=== PATIENT | female | born 1960 | race Caucasian/White ===

== ENCOUNTER → 2016-06-22 | Outpatient (CLI) | payer OTHER ==
[~2016-06-22] VITALS: Ht 162.6 cm; Wt 68.0 kg
[~2016-06-22] MED LIST: BACLOFEN 10MG T10 MG PO; BACTRIM DS TAB1 EACH PO; CEFTIN500 MG PO; COUMADIN 4 MG TA4 M1 PO; ESTRACE0.5 MG PO; HYDROCODON-ACE1 EAC5 PO; HYDROCODON-ACE1 EAC7 PO; HYDROCODONE-AP1 EAC6 PO; HYSINGLA ER40 MG PO; LIORESAL 10 MG10 MG PO; LIPITOR10 MG PO; LYRICA 75 MG CA75 MG PO; MEDROLDOSEPACK PO; NABUMETONE 500500 M1 PO; NEURONTIN 300300 M1 PO
--- NOTE | ~2016-06-22 | HPC ---
[facility] [place] [address] PAIN MANAGEMENT CONSULTATION Name: ARLENE MCKAY Room #: REG [facility]#: [id number] Admission: 06/22/16 Attend Phys: Nigel Orr DO Discharge: Date of : 56 Report #: [id number] THIS REPORT FOR: //name// CC: Nigel Jordan MD DATE OF SERVICE: 06/22/2016 REFERRING PHYSICIAN: Josafat Jordan M.D. CHIEF COMPLAINT: Low back pain, bilateral lower extremity pain with paresthesias. HISTORY OF PRESENT ILLNESS: As you know, patient is a 56-year-old female returning in followup visit reporting low back pain, bilateral lower extremity pain with paresthesias. She states her pain is sharp, aching, numbness and tingling in sensation, exacerbated with walking, standing, bending, improves with medications, repositioning. She is placing current pain score at 9/10. She has returned today in followup visit requesting a lumbar epidural injection under fluoroscopic guidance to address suspected recurrent lumbar radicular symptoms. As you are aware, we have treated the patient's lumbar radicular pain in the past with epidural injection with good resolution of symptoms. She returns today to trial this epidural again to hopefully improve symptoms further. She does suffer from continued facet arthropathy of the lumbar spine. This does not appear to be the source of the patient's pain today given the distribution of symptoms radiating all the way down to the ankles. ALLERGIES: OXYCODONE, ACETAMINOPHEN. CURRENT MEDICATIONS: Hydrocodone, gabapentin, Estrace and atorvastatin. SOCIAL HISTORY: The patient continues to smoke 1 pack of tobacco per day. She is not at all attempting to quit. She denies IV or illicit drug use. Denies any chronic alcohol use. She is unaccompanied today. PHYSICAL EXAMINATION: VITAL SIGNS: Blood pressure 137/85, pulse 73, respiratory rate 16, unlabored. The patient is 99% on room air. Height 5 feet 4 inches tall, weight 150 pounds, BMI calculated 25.7. GENERAL: Well developed, well nourished, well hydrated 56-year-old female, appearing stated age, placing pain score today 9/10. HEENT: Normocephalic, atraumatic. Pupils equal, round, reactive to light. Extraocular muscles are intact. EXTREMITIES: Show no clubbing, no cyanosis, no edema. MUSCULOSKELETAL: There is some palpatory tenderness over the paraspinal [facility] [address] [place] [address] PAIN MANAGEMENT CONSULTATION Name: ARLENE MCKAY SHRUTHI [facility]: [facility] [id number] Admission: 06/22/16 Attend Phys: Nigel Orr DO Discharge: Date of : 56 Report #: [id number] musculature of lower lumbar spine. Seated and straight leg raising negative. Supine straight leg raising positive. Fabere's test is negative. Modified Gaenslen's positive for axial low back pain. Ankle clonus negative. Babinski is negative. Muscle bulk and tone equal and symmetrical in lower extremities. No focal neurologic deficits. Lumbar provocation testing including extension, rotation, lateral flexion all intensify axial back pain. ASSESSMENT: 1. Recurrent lumbar radiculopathy. 2. Lumbosacral spondylosis with radicular symptoms. 3. Lumbar degeneration. 4. Chronic intractable pain. PLAN: 1. The patient has returned today in followup visit with what appears to be recurrent lumbar radiculopathy. The patient has symptoms radiating from the back along the posterolateral thigh all the way to the ankles. This distribution would indicate more of a radicular component than her typical facet arthropathy pain. We have discussed with the patient the options for treatment. She chose to undergo epidural injection under fluoroscopic guidance. She was advised risks and benefits of this procedure. These risks include, but are not necessarily limited to bleeding, bruising, infection, worsening pain, no relief of pain, also risk of temporary or permanent muscle weakness, temporary or permanent nerve damage, possible paralysis and . The patient states understood and wished to proceed. 2. The patient was provided a prescription of gabapentin 300 mg dose. She is to take 3 tabs at night, given #90 tablets with two refills, 3 months' worth of medication. 3. The patient was provided a refill prescription of [place] 10/325, 1 tab p.o. q. 6 hours p.r.n for pain #120, releases of today, 4 weeks from today, 8 weeks from today, 3 months' worth of medication. 4. The patient will return to our clinic in 3 months for ongoing medical therapy earlier if she wishes to undergo interventional treatments. We reviewed the fact that opiate medications are being used to provide analgesia adequate to support activities of daily living, not attempting to achieve a specific pain score on the 0-10 Visual Analog Scale. The current opiate medications are providing sufficient analgesia to allow the patient to participate in activities of daily living. The patient is not exhibiting any aberrant behavior suggestive of drug diversion. The patient is not having any adverse reactions to medications. The patient is not suffering from daytime somnolence or mental acuity changes. The patient is managing opiate-induced constipation with appropriate mdva-qcj-abhqsle agents and dietary considerations. The patient was counseled on concern for caution with operating a motor vehicle while using opiate medications. [facility] [address] [place] [address] PAIN MANAGEMENT CONSULTATION Name: ARLENE MCKAY Room #: REG CL M.Violet.#: [id number] Admission: 06/22/16 Attend Phys: Nigel Orr DO Discharge: Date of : 56 Report #: [id number] A physical exam was performed and the patient's functional status was evaluated. All patients with back pain were advised against the bed rest greater than 4 days and were advised to return to normal activities. Pain score assessment was noted and the treatment plan was reviewed with the patient. All current medications, both prescribed and OTC were reviewed and reconciled on the electronic medical record. Tobacco screening was accomplished and smoking cessation was advised when indicated. BMI was noted and diet/exercise modification was recommended for all patients following outside normal parameters. I reviewed with the patient today their responsibilities to safeguard prescription medications, reviewed their responsibility to utilize medications only as prescribed by the physician. They are to seek and receive pain medications only from 1 physician group ( [facility]). They are to use 1 pharmacy and keep the clinic informed if they change pharmacies. Their responsibilities include making followup visits in a timely fashion and to avoid abrupt discontinuation of medication usage. Their responsibilities further include bringing their medications (bottles from the pharmacy with residual pills) to the visit for possible confirmation of pill counts and the patient understands it is their responsibility to submit to random drug screens to ensure both that the medications prescribed are present, and that no other controlled substances are present. All prescriptions provided today were generated electronically. PROCEDURE NOTE DESCRIPTION OF PROCEDURE: Lumbar epidural injection under fluoroscopic guidance. After obtaining written consent, the patient was taken back to fluoroscopy suite, placed in prone position with pillow under abdomen to decrease lumbar lordosis. Skin overlying the lumbosacral area was prepped and draped in aseptic fashion. Lumbar intervertebral spaces were identified by AP fluoroscopy. Skin and subcutaneous tissue overlying the target site of injection was anesthetized with 3 mL of 1% lidocaine. A 20-gauge 3-1/2 inch Tuohy needle was advanced under fluoroscopic guidance towards the epidural space using a paramedian approach. Epidural space was identified using loss of resistance to air technique. After negative aspiration for heme or cerebrospinal fluid, 1 mL of Omnipaque was injected. Lumbar epidurogram was confirmed using both AP and lateral fluoroscopy. After negative aspiration for heme or cerebrospinal fluid, 5 mL of a solution containing 2 mL 40 mg per mL, 80 mg total triamcinolone, 3 mL lidocaine 1% was injected slowly. Needle retracted approximately long term, needle tract flushed 3 mL 1% lidocaine. Needle then removed. Sterile bandage placed over injection site. No new motor deficits present in lower extremity following procedure. [address] [address] PAIN MANAGEMENT CONSULTATION Name: ARLENE MCKAY Room #: REG [facility] Garza#: [id number] Admission: 06/22/16 Attend Phys: Nigel Orr DO Discharge: Date of : 56 Report #: [id number] The patient tolerated procedure well, carefully escorted to the recovery in stable condition. No apparent complication. After meeting discharge criteria, the patient discharged home. <ELECTRONICALLY SIGNED> By: Nigel Orr DO 06/28/16 [id number] [id number] Nigel Orr DO /nt
[2016-06-22 11:04] VITALS: BP 137/85
== END | disposition home or self-care (01) ==
LOC: PAIN 07:17
DX: M51.36 Other intervertebral disc degeneration, lumbar region (principal); M47.27 Other spondylosis with radiculopathy, lumbosacral region; G89.29 Other chronic pain

== ENCOUNTER → 2016-09-27 | Outpatient (CLI) | payer OTHER ==
[~2016-09-27] VITALS: Ht 162.6 cm; Wt 63.1 kg
--- NOTE | ~2016-09-27 | HPC ---
[facility] [address] [place] [address] PAIN MANAGEMENT CONSULTATION Name: ARLENE MCKAY Room #: REG [facility]..#: [id number] Admission: 09/27/16 Attend Phys: Nigel Orr DO Discharge: Date of : 56 Report #: [id number] THIS REPORT FOR: //name// CC: Nigel Jordan MD DATE OF SERVICE: 09/27/2016 REFERRING PHYSICIAN: Josafat Jordan MD CHIEF COMPLAINT: Low back pain, bilateral lower extremity pain and paresthesias, increasing neck pain, right upper extremity pain and paresthesias. HISTORY OF PRESENT ILLNESS: As you know, patient is a 56-year-old female who suffers from chronic lumbar radiculopathy and chronic cervical radiculopathy. She is placing pain score today 4/10. States pain is sharp and aching in sensation. Pain is exacerbated with walking, standing, bending, using her right upper extremity, improves with medications and seated position. She indicates today that neck pain is beginning to increase, but at this time wishes no changes in medical therapy. She is going to delay the next in a series of cervical epidural injections until which time pain intensifies. She is denying injury or trauma to neck cord low back that may have led to sustaining pain. ALLERGIES: OXYCODONE, ACETAMINOPHEN. CURRENT MEDICATIONS: Hydrocodone 10/325 one tab every 6 hours p.r.n. for pain, gabapentin 900 mg p.o. at bedtime, estradiol 0.5 mg once a day. SOCIAL HISTORY: The patient continues to smoke 1 pack tobacco per day, has done so for years. Denies IV or illicit drug use. Denies any chronic alcohol use. She is unaccompanied today. IMAGING: No new imaging available. PHYSICAL EXAMINATION: VITAL SIGNS: Blood pressure 123/77, pulse 78, respiratory rate 14 and unlabored, the patient 99% on room air. Height 5 feet 4 inches tall, weight 139.2 pounds, BMI calculated 23.9. GENERAL: Well developed, well nourished, well hydrated, 56-year-old female appearing her stated age. Pain is rated around 4/10. HEENT: Normocephalic, atraumatic. Pupils equal, round, reactive to light. Extraocular muscles are intact. Sclerae nonicteric without injection. NEUROLOGIC: Speech is fluent. The patient deemed a good historian. EXTREMITIES: Show no clubbing, no cyanosis, no edema. MUSCULOSKELETAL: Palpatory tenderness is noted over the paraspinal musculature [address] [address] PAIN MANAGEMENT CONSULTATION Name: ARLENE MCKAY SHRUTHI Room #: REG [facility] Nazia.#: [id number] Admission: 09/27/16 Attend Phys: Nigel Orr DO Discharge: Date of : 56 Report #: [id number] of cervical spine. Cervical provocation testing including extension, rotation, lateral flexion to the right causes intensification of pain. Spurling's test equivocal right, negative left. There is palpatory tenderness over the lower lumbar spine, no spinous process tenderness. Seated straight leg raising negative. Supine straight leg raising positive. Fabere's test negative. ASSESSMENT: 1. Cervical radiculopathy. 2. Cervical spondylosis with radiculopathy. 3. Chronic lumbar radiculopathy. 4. Lumbosacral spondylosis with radiculopathy. 5. Lumbar degeneration. 6. Chronic intractable pain. PLAN: 1. The patient has returned today in followup visit with increasing neck pain, right upper extremity pain and paresthesias. As you are aware, patient is noted to have a cervical radiculopathy that involves this neck area and right upper extremity. She states that her pain has not intensified to a level for which she wishes to undergo cervical epidural injection, but this planning if the pain does intensify to return for this injection. I have advised the patient we would be more than willing to see her back in followup visit to undergo this procedure, but at this time, I recommend more conservative treatment using medication therapy, rest, relaxation and stretching. 2. The patient was provided a prescription of hydrocodone 10/325 mg 1 tab p.o. q. 6 hours p.r.n. for pain, I have given the patient #120 releases of today, 4 weeks from today, 8 weeks from today, 3 months' worth of medication. 3. The patient was provided a prescription of gabapentin 300 mg dose 3 tabs p.o. at bedtime, #90 two refills. I did advise the patient if her pain does begin to intensify, we would recommend an escalating dose of the gabapentin in the evening hours, she could reach 1200 mg or 4 tabs at night, if this is ineffective at alleviating symptoms begin 1 tab in the morning, 4 tabs at night for 5 nights, then increase to 2 tabs in the morning and 4 tabs at night. If she does decide to increase the medication and she runs low on medications, she can contact her clinic, we will make them available to her and we will call this into her local pharmacy. 4. The patient will return to our clinic for next in the series of cervical epidural injections. Otherwise, we will see her back in followup visit for medication management 3 months from today. By: 1630 1 Nigel Orr DO /evie
[2016-09-27 13:00] VITALS: BP 123/77
== END | disposition home or self-care (01) ==
LOC: PAIN 07:11
DX: M51.36 Other intervertebral disc degeneration, lumbar region (principal); M47.27 Other spondylosis with radiculopathy, lumbosacral region; M47.22 Other spondylosis with radiculopathy, cervical region; G89.29 Other chronic pain; F11.20 Opioid dependence, uncomplicated; F17.200 Nicotine dependence, unspecified, uncomplicated

== ENCOUNTER → 2016-12-27 | Outpatient (CLI) | payer OTHER ==
[~2016-12-27] VITALS: Ht 162.6 cm; Wt 64.4 kg
--- NOTE | ~2016-12-27 | HPC ---
[facility] [place] [address] PAIN MANAGEMENT CONSULTATION Name: NELYARLENE SHRUTHI Room #: REG [facility].#: [id number] Admission: 12/27/16 Attend Phys: Nigel Orr DO Discharge: Date of : 56 Report #: [id number] THIS REPORT FOR: //name// CC: Nigel Jordan MD DATE OF SERVICE: 12/27/2016 REFERRING PHYSICIAN: Josafat Jordan MD CHIEF COMPLAINT: Neck pain, right upper extremity pain with paresthesias. HISTORY OF PRESENT ILLNESS: As you know, the patient is a 56-year-old female who returns today in followup visit with increasing neck pain, right upper extremity pain with paresthesias. The patient is placing pain score today at around 6/10, states her pain is sharp, aching, numbness and tingling sensation, exacerbated with activity, improves with sitting, repositioning and medications. She has returned today in followup visit requesting a cervical epidural injection as well as receiving refills of her medications for ongoing pain control. She returns requesting this procedure and medications to be provided today. ALLERGIES: OXYCODONE and ACETAMINOPHEN. CURRENT MEDICATIONS: Hydrocodone, gabapentin, and estradiol. SOCIAL HISTORY: The patient continues to smoke 1 pack tobacco per day, has done so for years. Denies IV or illicit drug use. Denies any chronic alcohol use. She is working, not receiving workmen's compensation, unaccompanied today. IMAGING: No new imaging available. PHYSICAL EXAMINATION: VITAL SIGNS: Blood pressure 106/74, pulse 57, respiratory rate 14 and unlabored, the patient is 98% on room air, height 5 feet 4 inches tall, weight 142 pounds, and BMI calculated 24.4. GENERAL: Well-developed, well-nourished, and well-hydrated 56-year-old female, appearing stated age, placing current pain score at 6/10. HEENT: Normocephalic, atraumatic. Pupils are equal, round, and reactive to light. Extraocular muscles are intact. EXTREMITIES: Show no clubbing, no cyanosis, and no edema. MUSCULOSKELETAL: Upper extremity strength appears equal and symmetrical 5/5, intact to light touch from C5-T1 dermatomes. Spurling's test positive right, negative left. [address] [address] PAIN MANAGEMENT CONSULTATION Name: ARLENE MCKAY Room #: REG [facility] Garza#: [id number] Admission: 12/27/16 Attend Phys: Nigel Orr DO Discharge: Date of : 56 Report #: [id number] ASSESSMENT: 1. Cervical radiculopathy. 2. Cervical spondylosis with radicular symptoms. 3. Chronic intractable pain. PLAN: 1. The patient has returned today in followup visit indicating worsening of neck and right upper extremity pain. She has returned today in followup visit requesting a cervical epidural injection under fluoroscopic guidance. The patient has done very well with previous cervical epidural injections, hopeful to see similar improvement today. She was advised risks and benefits of the procedure, states she understood and wished to proceed. 2. The patient was provided a refill prescription of her hydrocodone 10/325 one tab every 6 hours p.r.n. for pain, I have given the patient #120, release dates of today, 4 weeks from today, 8 weeks from today, 3 months' worth of medication. 3. The patient was provided a prescription of gabapentin 300 mg dose 3 tabs p.o. at bedtime, given the patient #90 tablets with 2 refills, 3 months' worth of medication. 4. The patient will return to our clinic on an as needed basis for possible repeat cervical epidural injection or to address her ongoing low back pain. PROCEDURE NOTE DESCRIPTION OF PROCEDURE: C7-T1 cervical epidural steroid injection under fluoroscopic guidance. After obtaining written consent, the patient was taken back to fluoroscopy suite, placed in prone position with separate pillows under chest and forehead to decrease cervical lordosis. Skin overlying cervical area prepped and draped in aseptic fashion. C7-T1 cervical interspace identified by AP fluoroscopy. Skin and subcutaneous tissue overlying target site of injection was anesthetized with 3 mL of 1% lidocaine. A 20-gauge 3-1/2-inch Tuohy needle advanced under fluoroscopic guidance towards the epidural space using a midline approach. Epidural space was identified using loss of resistance to air technique. After negative aspiration for heme or cerebrospinal fluid, 1 mL of Omnipaque was injected. A cervical epidurogram was confirmed using both AP and oblique fluoroscopy. After negative aspiration for heme or cerebrospinal fluid, 5 mL of a solution containing 2 mL 40 mg per mL, 80 mg total triamcinolone, 3 mL lidocaine 1% was injected slowly. Needle retracted detention, needle tract flushed with 3 mL of 1% lidocaine. Needle was then removed. Sterile bandage placed over injection site. No new motor deficits present in the upper extremity following the procedure. The patient tolerated the procedure well, carefully escorted to the recovery [address] [address] PAIN MANAGEMENT CONSULTATION Name: NELYARLENE Room #: REG [facility] Garza#: [id number] Admission: 12/27/16 Attend Phys: Nigel Orr DO Discharge: Date of : 56 Report #: [id number] room in stable condition. No apparent complications. After meeting discharge criteria, the patient discharged home. By: 1343 [id number] Nigel Orr DO /nt
[2016-12-27 11:44] VITALS: BP 106/74
== END | disposition home or self-care (01) ==
LOC: PAIN 07:07
DX: M47.22 Other spondylosis with radiculopathy, cervical region (principal); G89.29 Other chronic pain; F17.210 Nicotine dependence, cigarettes, uncomplicated; F11.20 Opioid dependence, uncomplicated; Z88.8 Allergy status to other drugs, medicaments and biological substances; Z98.890 Other specified postprocedural states

== ENCOUNTER → 2017-03-13 | Outpatient (CLI) | payer OTHER | LOC: ULTRA 13:13 | DX: I82.491 Acute embolism and thrombosis of other specified deep vein of right lower extremity (principal) ==

== ENCOUNTER → 2017-03-21 | Outpatient (CLI) | payer OTHER ==
[~2017-03-21] VITALS: Ht 162.6 cm; Wt 66.2 kg
[~2017-03-21] MED LIST changes: +XARELTO20 MG PO
--- NOTE | ~2017-03-21 | HPC ---
[facility] [place] [address] PAIN MANAGEMENT CONSULTATION Name: NELYARLENE [facility] [id number] Admission: 03/21/17 Attend Phys: Nigel Orr DO Discharge: Date of : 56 Report #: [id number] THIS REPORT FOR: //name// CC: Nigel Jordan MD DATE OF SERVICE: 03/21/2017 REFERRING PHYSICIAN: Josafat Jordan MD CHIEF COMPLAINT: Neck pain, upper extremity pain with paresthesias, and chronic low back pain. HISTORY OF PRESENT ILLNESS: As you know, the patient is a 56-year-old female who returns today in followup visit indicating a pain of 7/10, starts in the neck, radiates down the right arm into the hand as well as chronic axial back pain issues. She describes the pain as sharp, stabbing, tingling and aching, exacerbated with activities, bending, walking, and turning her head, medications, sitting and epidural injections appear to improve pain. She returns today in followup visit providing information that she was restarted on Xarelto as she developed a second deep vein thrombosis in the right lower extremity and has just been recently started on Xarelto, which now precludes us from the capability of providing epidural injections until which time she can come off the medication for the requested 3 days. She returns today in followup visit for medication management as she understands she cannot undergo procedures at this time. ALLERGIES: OXYCODONE and ACETAMINOPHEN. CURRENT MEDICATIONS: Xarelto 20 mg once a day, hydrocodone/acetaminophen 10/325 mg 1 tab p.o. q. 6 hours p.r.n. for pain, gabapentin 900 mg at night, estradiol 0.5 mg once a day. SOCIAL HISTORY: The patient continues to smoke 1 pack tobacco per day, has done so for years. Denies IV or illicit drug use. Denies any chronic alcohol use. She is working, not receiving workmen's compensation, unaccompanied today. IMAGING: No new imaging available. PHYSICAL EXAMINATION: VITAL SIGNS: Blood pressure 113/71, pulse is 70, and respiratory rate 14 and unlabored, the patient is 98% on room air, height 5 feet 4 inches tall, weight 146 pounds, and BMI calculated 25. GENERAL: Well-developed, well-nourished, well-hydrated 56-year-old female, appears her stated age, pain is rated around 7/10. [place] [address] PAIN MANAGEMENT CONSULTATION Name: ARLENE MCKAY SHRUTHI [facility]: [facility] [id number] Admission: 03/21/17 Attend Phys: Nigel Orr DO Discharge: Date of : 56 Report #: [id number] HEENT: Normocephalic, atraumatic. Pupils are equal, round, and reactive to light. Extraocular muscles are intact. Sclerae are nonicteric without injection. NEUROLOGIC: Cranial nerves 2-12 are grossly intact. Speech is fluent. EXTREMITIES: Show no clubbing, no cyanosis, and no edema. MUSCULOSKELETAL: Upper extremity strength appears equal and symmetrical 5/5, intact to light touch from C5-T1 dermatomes. Deep tendon reflexes are equal and symmetrical at biceps, brachioradialis, and triceps. Spurling's test positive. There is palpatory tenderness over the lower lumbar spine, no spinous process tenderness. ASSESSMENT: 1. Symptomatic cervical radiculopathy. 2. Cervical spondylosis with radicular symptoms. 3. Axial back pain. 4. Lumbosacral spondylosis without radicular symptoms. 5. Chronic intractable pain. 6. Chronic anticoagulation. PLAN: 1. 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 The patient will be on this medication for a minimum of 6 months prior to being able to come off the therapy for injections. She was advised that if she is able to come off the medication for a 3-day period, we would be more than willing to provide a cervical epidural injection, but until that time, she does not match guideline criteria and thus cannot undergo procedures. We discussed this with the patient today. I would recommend continuation of medication therapy at this time. The patient states she understood and does agree with continuing medication therapy. 2. The patient will continue on gabapentin 300 mg dose 3 tabs p.o. at bedtime for a total of 900 mg, she was given #90 with 2 refills. 3. The patient was provided a prescription of hydrocodone/acetaminophen 10/325 one tab p.o. q.5 hours p.r.n. for pain, given the patient #120, release dates of today, 4 weeks from today, 8 weeks from today, 3 months' worth of medication. 4. We will see the patient back in followup visit in 3 months for medication therapy, earlier if she is able to come off her Xarelto for 3 days to undergo a cervical injection. By: [id number] Nigel Orr DO /nt
[2017-03-21 11:25] VITALS: BP 113/71
== END ==
LOC: PAIN 06:32
DX: M47.892 Other spondylosis, cervical region (principal); M47.897 Other spondylosis, lumbosacral region; M54.12 Radiculopathy, cervical region

== ENCOUNTER → 2017-06-20 | Outpatient (CLI) | payer OTHER | LOC: ULTRA 11:20 | DX: I82.491 Acute embolism and thrombosis of other specified deep vein of right lower extremity (principal) ==

== ENCOUNTER → 2017-08-01 | Outpatient (CLI) | payer OTHER ==
[~2017-08-01] VITALS: Ht 162.6 cm; Wt 68.9 kg
--- NOTE | ~2017-08-01 | HPC ---
[facility] [place] [address] PAIN MANAGEMENT CONSULTATION Name: NELYARLENE JO Room #: REG [facility]..#: [id number] Admission: 08/01/17 Attend Phys: Nigel Orr DO Discharge: Date of : 56 Report #: [id number] THIS REPORT FOR: //name// CC: Nigel Jordan MD DATE OF SERVICE: 08/01/2017 REFERRING PHYSICIAN: Josafat Jordan MD CHIEF COMPLAINT: Neck pain, upper extremity pain with paresthesias, chronic low back pain due to osteoarthritis. HISTORY OF PRESENT ILLNESS: As you know, the patient is a very pleasant 57-year-old female who returns today in followup visit for medication management. She states overall her pain medications are working beneficially for pain control. She provides a pain score today of around 5/10, states her pain is sharp, stabbing, numbness, tingling, aching, throbbing in sensation, exacerbated with activities, walking, bending, turning her head, improves with medications, seated positions, repositioning and heat. She returns today in followup visit, denying new injury or new trauma that has led to continuation of symptoms. ALLERGIES: OXYCODONE and ACETAMINOPHEN. CURRENT MEDICATIONS: Xarelto 20 mg per day, hydrocodone/acetaminophen 10/325 one tab every 6 hours p.r.n. for pain, gabapentin 900 mg p.o. at bedtime, and estradiol 0.5 mg once a day. SOCIAL HISTORY: The patient unfortunately continues to smoke 1 pack of tobacco per day. Denies IV or illicit drug use. Denies any chronic alcohol use. She is working, not receiving workmen's compensation, unaccompanied today. IMAGING: No new imaging available. PQRS: The patient has no known history of osteoarthritis or rheumatoid arthritis. She has a pain intensity of 5/10. She is not a fall risk, has not had a fall in the past 3 months. She is not on blood thinners, not taking anything for hypertension. She has been on opioid for greater than 6 weeks, she has a risk assessment tool of medium for possible addiction to opioids. Functional assessment 35/70. PHYSICAL EXAMINATION: VITAL SIGNS: Blood pressure 113/80, pulse is 72, respiratory rate 14 and unlabored, the patient is 97% on room air, height 5 feet 4 inches tall, weight [facility] [address] [address] PAIN MANAGEMENT CONSULTATION Name: ARLENE MCKAY SHRUTHI Room #: REG [facility].#: [id number] Admission: 08/01/17 Attend Phys: Nigel Orr DO Discharge: Date of : 56 Report #: [id number] 152 pounds, and BMI calculated 26.1. GENERAL: Well-developed, well-nourished, well-hydrated 57-year-old female, appearing her stated age, placing pain score no greater than 5/10. HEENT: Normocephalic, atraumatic. Pupils are equal, round, and reactive to light. Extraocular muscles are intact. EXTREMITIES: Show no clubbing, no cyanosis, and no edema. MUSCULOSKELETAL: Upper extremity strength remains symmetrical 5/5. She is intact to light touch from C5-T1 dermatomes. Spurling's test positive. There is palpatory tenderness over the paraspinal musculature of the cervical region. No spinous process tenderness. Deep tendon reflexes are symmetrical at biceps, brachioradialis, and triceps. ASSESSMENT: 1. Symptomatic cervical radiculopathy. 2. Cervical spondylosis with radiculopathy. 3. Chronic axial back pain. 4. Facet changes in the lower lumbar spine. 5. Opioid dependency. 6. Chronic intractable pain. PLAN: 1. The patient returns today in followup visit for medication management. The patient and I discussed at length the use of the medications for pain control, she does indicate the pain medications are working beneficially providing pain no greater than 5/10. We have agreed to provide the medication for the next 3 months. 2. The patient was provided a prescription of Ronks 10/325 one tab every 6 hours p.r.n. for pain, #120, release dates of today, 4 weeks from today, 8 weeks from today. The patient is to take this medication as directed, not to take the medication prophylactically. 3. The patient was provided prescription of Neurontin 300 mg dose 4 tabs p.o. at bedtime, #120, 2 refills, 3 months' worth of medication. 4. The patient will submit to a buccal drug screen. This buccal drug screen is part of our screening process for chronic opioid patients. This is part of the opioid contract, the patient signed in [place]. We will have the patient undergo this evaluation today and we will have the results in about 1 week. The patient may call back for the results. She indicates that we will find no aberrancy within the drug screen. 5. The patient has signed her opioid contract with our clinic for ongoing medication therapy. 6. We will see the patient back in followup visit in 3 months or earlier for epidural injections. <ELECTRONICALLY SIGNED> By: Nigel Orr DO 08/22/17 0856 [id number] Nigel Orr, /nt
[2017-08-01 12:55] VITALS: BP 113/80
== END ==
LOC: PAIN 07-25 07:05
DX: M54.12 Radiculopathy, cervical region (principal); M47.892 Other spondylosis, cervical region; M54.5 Low back pain; G89.29 Other chronic pain; F11.10 Opioid abuse, uncomplicated; Z88.5 Allergy status to narcotic agent; Z88.6 Allergy status to analgesic agent

== ENCOUNTER → 2017-10-31 | Outpatient (CLI) | payer OTHER ==
[~2017-10-31] VITALS: Ht 162.6 cm; Wt 67.0 kg
--- NOTE | ~2017-10-31 | HPC ---
[facility] [address] [place] [address] PAIN MANAGEMENT CONSULTATION Name: NELYARLENE Room #: REG [facility] M..#: [id number] Admission: 10/31/17 Attend Phys: Nigel Orr DO Discharge: Date of : 56 Report #: [id number] THIS REPORT FOR: //name// CC: Nigel Jordan MD DATE OF SERVICE: 10/31/2017 CHIEF COMPLAINT: Low back pain, right lower extremity pain with paresthesias. HISTORY OF PRESENT ILLNESS: As you know, the patient is a very pleasant 57-year-old female who returns periodically to [facility] for low back pain, right lower extremity pain with paresthesias and chronic neck pain and bilateral upper extremity pain with paresthesias. The patient has returned today in followup visit for medication management. She is also requesting to begin the preapproval process for a lumbar epidural injection to address low back pain and right lower extremity symptoms. She indicates today pain level of 6/10, states her pain is sharp, stabbing, tingling, aching and throbbing in sensation, exacerbated with activity, walking, bending, turning in bed. States pain is improved with medications, repositioning, sitting and heat compresses. She returns today for medication management and to begin the process of preauthorization for an epidural injection. ALLERGIES: OXYCODONE AND ACETAMINOPHEN. CURRENT MEDICATIONS: Hydrocodone/acetaminophen 10/325 one tab every 8 hours p.r.n. for pain, gabapentin 900 mg p.o. at bedtime, Estrace 0.5 mg once a day. SOCIAL HISTORY: The patient continues to smoke. She smokes 1 pack a day for 15 years. Denies IV or illicit drug use. Denies any chronic alcohol use. She is working, not receiving workmen's compensation, unaccompanied today. IMAGING: No new imaging available. PHYSICAL EXAMINATION: VITAL SIGNS: Blood pressure 120/88, pulse is 83, respiratory rate 16, unlabored. The patient is 96% on room air. Height 5 feet 4 inches tall, weight 147.6 pounds, BMI calculated 25.3. GENERAL: Well-developed, well-nourished, well-hydrated 57-year-old female appearing stated age. She is placing pain score today 6/10. HEENT: Normocephalic, atraumatic. Pupils equal, round, reactive to light. Extraocular muscles are intact. Sclerae nonicteric without injection. NEUROLOGIC: Cranial nerves 2-12 grossly intact. Speech is fluent. The patient deemed a good historian. EXTREMITIES: Show no clubbing, no cyanosis, [place] [address] PAIN MANAGEMENT CONSULTATION Name: ARLENE MCKAY Room #: REG [facility] Garza#: [id number] Admission: 10/31/17 Attend Phys: Nigel Orr DO Discharge: Date of : 56 Report #: [id number] MUSCULOSKELETAL: Lower extremity strength appears equal and symmetrical, 5/5. Slight giveaway strength noted with knee extension and hip flexion on the right when compared to left. Seated straight leg raising negative. Supine straight leg raising is mildly positive right. BEKAH test negative. Muscle bulk and tone equal and symmetrical in lower extremities. ASSESSMENT: 1. Symptomatic lumbar radiculopathy. 2. Lumbosacral spondylosis with radicular symptoms. 3. Lumbar degeneration. 4. Chronic intractable pain. PLAN: 1. The patient returns today in followup visit requesting to begin the authorization process for lumbar epidural injection. The patient was advised this could take anywhere from 24-96 hours to achieve authorization, will begin the process immediately. Once we have authorization, we will have the patient return to undergo epidural injection under fluoroscopic guidance. The patient indicates good efficacy with previous injections upwards of 70-80% improvement. She is hopeful to see similar improvement with the requested procedure. We will contact the patient once we have achieved authorization for the patient to undergo epidural injection. 2. The patient was provided a prescription of hydrocodone 10/325 one tab p.o. q.6 hours p.r.n. for pain. I have given the patient #120, releases of today, 4 weeks from today, 8 weeks from today, 3 months' worth of medication. The patient was advised to take the medication as directed, not to take the medication prophylactically. 3. The patient was provided a prescription of gabapentin 300 mg dose 3 tabs p.o. at bedtime, total of 900 mg at night, #90 tablets, 2 refills. 4. We will see the patient back in followup visit once we have achieved authorization for the patient to undergo lumbar epidural injection under fluoroscopic guidance to address low back pain, right lower extremity pain with paresthesias. <ELECTRONICALLY SIGNED> By: Nigel Orr DO 11/01/17 0747 [id number] Nigel Orr DO /nt
[2017-10-31 11:02] VITALS: BP 128/88
== END ==
LOC: PAIN 06:47
DX: M47.27 Other spondylosis with radiculopathy, lumbosacral region (principal); Z88.5 Allergy status to narcotic agent; Z88.6 Allergy status to analgesic agent

== ENCOUNTER → 2018-02-27 | Outpatient (CLI) | payer OTHER ==
[~2018-02-27] VITALS: Ht 162.6 cm; Wt 66.6 kg
--- NOTE | ~2018-02-27 | HPC ---
[facility] [address] [place] [address] PAIN MANAGEMENT CONSULTATION Name: NELYARLENE JO Room #: REG [facility]..#: [id number] Admission: 02/27/18 Attend Phys: Nigel Orr DO Discharge: Date of : 56 Report #: [id number] THIS REPORT FOR: //name// CC: Nigel oJrdan MD DATE OF SERVICE: 02/27/2018 REFERRING PHYSICIAN: Josafat Jordan M.D. CHIEF COMPLAINT: Low back pain, right lower extremity pain with paresthesias and neck pain. HISTORY OF PRESENT ILLNESS: As you know, the patient is a very pleasant 57-year-old female who returns today in followup visit for medication management. The patient places pain today at a level of around 6/10, states her pain is mainly in the low back, lower extremities but intermittently in the neck. She also complains of numbness and tingling in her right hand due to carpal tunnel syndrome. She returns with a pain level 6/10 and states her pain is aching in sensation, exacerbated with activities, walking and bending; improves with medications, sitting and heat. She returns today requesting refill on medications, denying any side effects to the therapy. ALLERGIES: OXYCODONE and ACETAMINOPHEN. CURRENT MEDICATIONS: Hydrocodone, gabapentin and estradiol. SOCIAL HISTORY: The patient continues to smoke 1 pack tobacco per day and has done so for 16 years. Denies IV or illicit drug use. Denies any chronic alcohol use. She is working, not receiving workmen's compensation, unaccompanied today. IMAGING DATA: No new imaging available. PHYSICAL EXAMINATION: VITAL SIGNS: Blood pressure 102/64, pulse 78 and respiratory rate 14 and unlabored. The patient is 100% on room air. Height 5 feet 4 inches tall, weight 146.8 pounds and BMI calculated 25.2. GENERAL: Well-developed, well-nourished and well-hydrated 57-year-old female, appears her stated age. Pain is rated today at 6/10. HEENT: Normocephalic and atraumatic. Pupils equal, round and reactive to light. Extraocular muscles are intact. EXTREMITIES: Show no clubbing, no cyanosis and no edema. MUSCULOSKELETAL: Lower extremity strength equal and symmetrical 5/5. There appears to be some slight strength giveaway again today with knee extension, hip [facility] [address] [place] [address] PAIN MANAGEMENT CONSULTATION Name: ARLENE MCKAY Room #: REG [facility] Garza#: [id number] Admission: 02/27/18 Attend Phys: Nigel Orr DO Discharge: Date of : 56 Report #: [id number] flexion on the right when compared to left. Seated straight leg raising negative. Supine straight leg raising mildly positive right. Fredrick's test negative. Gait appears normal. There is some tactile sensation changes along the thumb and index finger and middle finger on the right hand. Spurling's test is negative. ASSESSMENT: 1. Chronic lumbar radiculopathy. 2. Lumbosacral spondylosis with radiculopathy. 3. Lumbar degeneration. 4. Carpal tunnel syndrome on the right. 5. Opioid dependency. 6. Complicated medical management. 7. Chronic intractable pain. PLAN: 1. The patient returns today in followup visit for medication management. She feels medications are working beneficially for pain control. The patient has requested refill on medications. She states no side effects including somnolence, decrease mental acuity, disorientation, confusion, mental slowing and constipation. 2. We reviewed the fact that opiate medications are being used to provide analgesia adequate to support activities of daily living, not attempting to achieve a specific pain score on the 0-10 Visual Analog Scale. The current opiate medications are providing sufficient analgesia to allow the patient to participate in activities of daily living. The patient is not exhibiting any aberrant behavior suggestive of drug diversion. The patient is not having any adverse reactions to medications. The patient is not suffering from daytime somnolence or mental acuity changes. The patient is managing opiate-induced constipation with appropriate idfr-qoy-xiwdfuj agents and dietary considerations. The patient was counseled on concern for caution with operating a motor vehicle while using opiate medications. A physical exam was performed and the patient's functional status was evaluated. All patients with back pain were advised against the bed rest greater than 4 days and were advised to return to normal activities. Pain score assessment was noted and the treatment plan was reviewed with the patient. All current medications, both prescribed and OTC were reviewed and reconciled on the electronic medical record. Tobacco screening was accomplished and smoking cessation was advised when indicated. BMI was noted and diet/exercise modification was recommended for all patients following outside normal parameters. I reviewed with the patient today their responsibilities to safeguard prescription medications, reviewed their responsibility to utilize medications only as prescribed by the physician. They are to seek and receive pain [facility] [address] [place] [address] PAIN MANAGEMENT CONSULTATION Name: ARLENE MCKAY Room #: REG [facility] Garza#: [id number] Admission: 02/27/18 Attend Phys: Nigel Orr DO Discharge: Date of : 56 Report #: [id number] medications only from 1 physician group ( [facility]). They are to use 1 pharmacy and keep the clinic informed if they change pharmacies. Their responsibilities include making followup visits in a timely fashion and to avoid abrupt discontinuation of medication usage. Their responsibilities further include bringing their medications (bottles from the pharmacy with residual pills) to the visit for possible confirmation of pill counts and the patient understands it is their responsibility to submit to random drug screens to ensure both that the medications prescribed are present, and that no other controlled substances are present. All prescriptions provided today were generated electronically. 3. The patient was provided prescription of hydrocodone 10/325 one tab every 6 hours p.r.n. for pain, I have given the patient #120, releases of today, 4 weeks from today, 8 weeks from today, 3 months' worth of medication. 4. The patient was provided prescription of gabapentin 300 mg dose 3 tabs p.o. at bedtime, given the patient #90 tablets with releases of today, 4 weeks from today, 8 weeks from today, 3 months' worth of medication. 5. The patient does appear to be suffering from a carpal tunnel syndrome on the right side. I have discussed treatment options, which would include physical therapy. The core of treatment for a carpal tunnel syndrome. We discussed cock-up splints to be used in the evening hours. This can help with the carpal tunnel sensations. Final treatment, we look towards surgical options. The patient chose after reviewing the treatment options to utilize more conservative treatment, she will try cock-up splints. If this is ineffective, she will discuss other options with me in followup visit. 6. We will see the patient back in followup visit in 3 months or earlier if she wishes to look towards interventional treatments. <ELECTRONICALLY SIGNED> By: Nigel Orr DO 03/06/18 1259 [id number] Nigel Orr DO /nt
[2018-02-27 13:00] VITALS: BP 102/64
== END ==
LOC: PAIN 07:17
DX: M47.27 Other spondylosis with radiculopathy, lumbosacral region (principal); M51.16 Intervertebral disc disorders with radiculopathy, lumbar region; G56.01 Carpal tunnel syndrome, right upper limb; F11.20 Opioid dependence, uncomplicated; G89.4 Chronic pain syndrome; Z79.899 Other long term (current) drug therapy

== ENCOUNTER → 2018-05-23 | Outpatient (CLI) | payer OTHER ==
[~2018-05-23] VITALS: Ht 162.6 cm; Wt 71.2 kg
--- NOTE | ~2018-05-23 | HPC ---
[facility] [address] [address] PAIN MANAGEMENT CONSULTATION Name: NELYARLENE Room #: REG [facility]..#: [id number] Admission: 05/23/18 Attend Phys: Nigel Orr DO Discharge: Date of : 56 Report #: [id number] THIS REPORT FOR: //name// CC: Nigel Jordan MD DATE OF SERVICE: 05/23/2018 CHIEF COMPLAINT: Neck pain, right upper extremity pain and paresthesias, chronic low back pain, right lower extremity pain and paresthesias. HISTORY OF PRESENT ILLNESS: As you know, the patient is a very pleasant 57-year-old female who returns today in followup visit to continue medication management for which she indicates good improvement in symptoms. She is reporting today the level of pain about 5/10. 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 She returns today requesting refill on medications stating no side effects of somnolence, decreased mental acuity, disorientation or confusion. She feels medications are working beneficially, providing up to 60-70% in overall pain. ALLERGIES: OXYCODONE, ACETAMINOPHEN. CURRENT MEDICATIONS: Hydrocodone, gabapentin and estradiol. SOCIAL HISTORY: The patient continues to smoke 1 pack of tobacco per day, has done so for 17 years. Denies IV or illicit drug use. Denies any chronic alcohol use. She is currently unemployed. She is unaccompanied today. IMAGING: No new imaging available. PHYSICAL EXAMINATION: VITAL SIGNS: Blood pressure 105/77, pulse 80, respiratory rate 14 and unlabored. The patient is 98% on room air. Height 5 feet 4 inches tall, weight 157 pounds, BMI calculated 26.9. GENERAL: Well-developed, well-nourished, well-hydrated 57-year-old female appearing stated age, placing current pain score 5/10. HEENT: Normocephalic, atraumatic. Pupils are equal, round, reactive to light. Extraocular muscles are intact. EXTREMITIES: Show no clubbing, no cyanosis, no edema. MUSCULOSKELETAL: Upper extremity strength remains equal and symmetrical 5/5. She is intact to light touch from C5-T1 dermatomes. Spurling's test positive. Lower extremity strength equal and symmetrical 5/5. Slight giveaway strength is noted with knee extension and hip flexion on the right when compared to left. This generates pain. Seated straight leg raising negative. Supine straight leg [facility] [address] [place] [address] PAIN MANAGEMENT CONSULTATION Name: ARLENE MCKAY SHRUTHI Room #: REG [facility]#: [id number] Admission: 05/23/18 Attend Phys: Nigel Orr DO Discharge: Date of : 56 Report #: [id number] raising positive right. Fredrick's test negative. Modified Gaenslen's positive for axial low back pain. ASSESSMENT: 1. Cervical radiculopathy. 2. Cervical spondylosis with radiculopathy. 3. Lumbar radiculopathy. 4. Lumbosacral spondylosis with radiculopathy. 5. Lumbar degeneration. 6. Complicated medication management. 7. Chronic intractable pain. PLAN: 1. The patient returns today in followup visit requesting refill on medications. She feels medications are working beneficially for pain control. The patient has noted improvement in symptoms since she has discontinued working. 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 She is interviewing for other jobs. She returns today requesting refill on medications. She denies side effects of somnolence, decreased mental acuity, disorientation, confusion. She is noting 60-70% improvement in overall pain. 2. We reviewed the fact that opiate medications are being used to provide analgesia adequate to support activities of daily living, not attempting to achieve a specific pain score on the 0-10 Visual Analog Scale. The current opiate medications are providing sufficient analgesia to allow the patient to participate in activities of daily living. The patient is not exhibiting any aberrant behavior suggestive of drug diversion. The patient is not having any adverse reactions to medications. The patient is not suffering from daytime somnolence or mental acuity changes. The patient is managing opiate-induced constipation with appropriate kmnl-ypx-vfejodf agents and dietary considerations. The patient was counseled on concern for caution with operating a motor vehicle while using opiate medications. A physical exam was performed and the patient's functional status was evaluated. All patients with back pain were advised against the bed rest greater than 4 days and were advised to return to normal activities. Pain score assessment was noted and the treatment plan was reviewed with the patient. All current medications, both prescribed and OTC were reviewed and reconciled on the electronic medical record. Tobacco screening was accomplished and smoking cessation was advised when indicated. BMI was noted and diet/exercise modification was recommended for all patients following outside normal parameters. I reviewed with the patient today their responsibilities to safeguard prescription medications, reviewed their responsibility to utilize medications only as prescribed by the physician. They are to seek and receive pain medications only from 1 physician group ([facility]). They are to use 1 pharmacy and keep the clinic informed if they change pharmacies. Their responsibilities include making followup visits in a timely fashion and to avoid abrupt discontinuation of medication usage. Their [address] [place] [address] PAIN MANAGEMENT CONSULTATION Name: ARLENE MCKAY [facility] [id number] Admission: 05/23/18 Attend Phys: Nigel Orr DO Discharge: Date of : 56 Report #: [id number] responsibilities further include bringing their medications (bottles from the pharmacy with residual pills) to the visit for possible confirmation of pill counts and the patient understands it is their responsibility to submit to random drug screens to ensure both that the medications prescribed are present, and that no other controlled substances are present. All prescriptions provided today were generated electronically. 3. The patient was provided prescription of hydrocodone 10/325 mg 1 tab p.o. q.6 hours p.r.n. for pain. I have given the patient #120 tablets, releases of today, 4 weeks from today, 8 weeks from today, 3 months' worth of medication. This totals 40 morphine equivalents a day, well below the CDCs recommended guidelines of no greater than 90 morphine equivalents a day. 4. The patient was provided prescription of gabapentin 300 mg dose. She takes 3 tabs p.o. at bedtime. I have given the patient #90 tablets, releases today, 4 weeks from today, 8 weeks from today, 3 months' worth of medication. 5. The patient to return to our clinic in 3 months for medication therapy, earlier if interventional treatment such as cervical epidural injections or lumbar epidural injections are necessary. 6. We will see the patient back in followup visit 3 months from today for medication treatment. We will keep you apprised of any other changes deemed necessary to treat ongoing pain. By: [id number] Nigel Orr DO /nt
[2018-05-23 08:54] VITALS: BP 105/77
== END ==
LOC: PAIN 06:55
DX: M47.22 Other spondylosis with radiculopathy, cervical region (principal); M47.27 Other spondylosis with radiculopathy, lumbosacral region; G89.4 Chronic pain syndrome; Z79.899 Other long term (current) drug therapy

== ENCOUNTER → 2018-09-04 | Outpatient (CLI) | payer OTHER ==
[~2018-09-04] VITALS: Ht 162.6 cm; Wt 66.0 kg
[~2018-09-04] MED LIST changes: +VOLTAREN GEL 1100 G1 TOP
[2018-09-04 13:25] VITALS: BP 121/81
--- NOTE | 2018-09-04 13:39 | NUR ---
Pain Clinic Assessment: 1. History of Osteoarthritis: Not Applicable History of Rheumatoid Arthritis: Not Applicable 2. Height: 5 ft. 4 in. 162.6 cm. Weight: 145.4 lb. oz. 65.953 kg. Patient's BMI: 24.9 3. Vital Signs: BP: 121/81 Pulse: 71 Resp: 14 Temp: 02 Sat: 97 ECG Mon: 4. Pain Intensity: 5 5. Fall Risk: Dizziness: N Needs help standing or walking: N Fallen in the last 3 months: N Fall risk comments: 6. Patient on Blood Thinner: None 7. History of Hypertension: N 8. Opioid Therapy greater than 6 weeks: Y Opiate Contract Signed: 03/15/16 9. Risk Assessment Tool Provided: low-1 10. Functional Assessment Tool: 11. Recreational Drug Use: Never Drug Type: Tobacco Use: Former Smoker Tobacco Type: Amount or Packs/day: How Many Years: Alcohol Use: Yes Frequency: Monthly Quant: 2
--- NOTE | 2018-09-06 08:41 | HPC ---
[facility] [place] [address] PAIN MANAGEMENT CONSULTATION Name: NELYARLENE Room #: REG [facility]..#: [id number] Admission: 09/04/18 ������������������ Attend Phys: Nigel Orr DO Discharge: ������������������ Date of : 56 Report #: [id number] THIS REPORT FOR: //name// CC: Nigel Jordan MD DATE OF SERVICE: 09/04/2018 CHIEF COMPLAINT: Low back pain, right lower extremity pain with paresthesias. HISTORY OF PRESENT ILLNESS: As you know, the patient is a very pleasant 58-year-old female who returns today in followup visit requesting refill on her medications for which she takes gabapentin, hydrocodone and utilizes Voltaren gel topically for bilateral hand pain. She has also requested a lumbar epidural injection to be provided today. She is concerned of increasing low back pain, right lower extremity pain with paresthesias that is leading to 5/10 pain. She denies any new injury, new trauma that may have led to symptom recurrence. She returns requesting the epidural injection and medication changes today. ALLERGIES: OXYCODONE AND ACETAMINOPHEN. CURRENT MEDICATIONS: Hydrocodone, gabapentin and estradiol. SOCIAL HISTORY: The patient continues to smoke 1 pack tobacco per day. She has done so for 18 years. Denies IV or illicit drug use. Denies any chronic alcohol use. She is employed, unaccompanied today. IMAGING: There is no new imaging available. PHYSICAL EXAMINATION: VITAL SIGNS: Blood pressure 121/81, pulse 71, respiratory rate 14 and unlabored. The patient is 97% on room air, height 5 feet 4 inches tall, weight 145 pounds, BMI calculated 24.9. GENERAL: Well-developed, well-nourished, well-hydrated 58-year-old female appearing stated age, pain is rated at 5/10. HEENT: Normocephalic, atraumatic. Pupils equal, round, reactive to light. Extraocular muscles are intact. Speech fluent. EXTREMITIES: Show no clubbing, no cyanosis, and no edema. MUSCULOSKELETAL: Lower extremity strength appears symmetrical 5/5, muscle bulk and tone equal and symmetrical when comparing left lower extremity over right. Seated straight leg raising negative. Supine straight leg raising positive on the right. Fredrick's test negative. Gait mildly antalgic favoring right lower extremity over the left. Ankle clonus negative. Babinski is negative. Deep tendon reflexes are symmetrical at patella and Achilles. [facility] [address] [place] [address] PAIN MANAGEMENT CONSULTATION Name: ARLENE MCKAY SHRUTHI Room #: REG [facility]ard Garza#: [id number] Admission: 09/04/18 ������������������ Attend Phys: Nigel Orr DO Discharge: ������������������ Date of : 56 Report #: [id number] ASSESSMENT: 1. Symptomatic lumbar radiculopathy. 2. Lumbosacral spondylosis with radiculopathy. 3. Lumbar degeneration. 4. Complicated medication therapy. 5. Chronic intractable pain. PLAN: 1. The patient returns today in followup visit to undergo lumbar epidural injection under fluoroscopic guidance. She has noted excellent benefit with lumbar epidural injections in the past. She requested to undergo this epidural injection in hopes of improving pain. She has been advised risks and benefits of this procedure, states understood and wished to proceed. 2. The patient was provided refill prescription of her gabapentin 300 mg tablets, she takes 3 at night for a total of 900 mg. She was given #90 tablets, 2 refills. She was advised to continue the medication as directed. We reviewed the fact that opiate medications are being used to provide analgesia adequate to support activities of daily living, not attempting to achieve a specific pain score on the 0-10 Visual Analog Scale. The current opiate medications are providing sufficient analgesia to allow the patient to participate in activities of daily living. The patient is not exhibiting any aberrant behavior suggestive of drug diversion. The patient is not having any adverse reactions to medications. The patient is not suffering from daytime somnolence or mental acuity changes. The patient is managing opiate-induced constipation with appropriate kspn-oac-tthcxko agents and dietary considerations. The patient was counseled on concern for caution with operating a motor vehicle while using opiate medications. A physical exam was performed and the patient's functional status was evaluated. All patients with back pain were advised against the bed rest greater than 4 days and were advised to return to normal activities. Pain score assessment was noted and the treatment plan was reviewed with the patient. All current medications, both prescribed and OTC were reviewed and reconciled on the electronic medical record. Tobacco screening was accomplished and smoking cessation was advised when indicated. BMI was noted and diet/exercise modification was recommended for all patients following outside normal parameters. I reviewed with the patient today their responsibilities to safeguard prescription medications, reviewed their responsibility to utilize medications only as prescribed by the physician. They are to seek and receive pain medications only from 1 physician group ([facility]). They are to use 1 pharmacy and keep the clinic informed if they change pharmacies. Their responsibilities include making followup visits in a timely fashion and to avoid abrupt discontinuation of medication usage. Their responsibilities further [facility] [address] [place] [address] PAIN MANAGEMENT CONSULTATION Name: ARLENE MCKAY Room #: REG LISSETT Garza#: [id number] Admission: 09/04/18 ������������������ Attend Phys: Nigel Orr DO Discharge: ������������������ Date of : 56 Report #: [id number] include bringing their medications (bottles from the pharmacy with residual pills) to the visit for possible confirmation of pill counts and the patient understands it is their responsibility to submit to random drug screens to ensure both that the medications prescribed are present, and that no other controlled substances are present. All prescriptions provided today were generated electronically. 3. The patient was provided prescription of hydrocodone 10/325 1 tab p.o. q. 6 hours p.r.n. for pain. I have given the patient #120, releasing today, 4 weeks from today, 8 weeks from today, 3 months' worth of medication. This totals 40 morphine equivalents per day maximum well below CDC's recommended no more than greater than 90 morphine equivalents. 4. I have provided the patient a prescription of Voltaren gel, 100 gram tube, #5. She is to apply 4 inches topically up to 4 times a day to affected hands for arthritic pain and noted changes. She was given this prescription with 2 refills, 3 months' worth of medication. We advised the patient to utilize this medication on an as needed basis. 5. We will see the patient back in followup visit for next in the series of lumbar epidural injections on an as needed basis. Otherwise, we will see her back in 3 months for medication management. PROCEDURE NOTE: DESCRIPTION OF PROCEDURE: L5-S1 right paramedian epidural steroid injection under fluoroscopic guidance. After obtaining written consent, the patient was taken back to fluoroscopy suite, placed in prone position with pillow under abdomen to decrease lumbar lordosis. Skin overlying lumbosacral area then prepped and draped in aseptic fashion. The L5-S1 vertebral interspace identified by AP fluoroscopy. Skin and subcutaneous tissue overlying target site of injection anesthetized with 3 mL of 1% lidocaine. A 20-gauge 3-1/2 inch Tuohy needle advanced under fluoroscopic guidance towards the epidural space using a right paramedian approach. Epidural space identified using loss of resistance to air technique. After negative aspiration for heme or cerebrospinal fluid, 1 mL of Omnipaque injected. Lumbar epidurogram confirmed using both AP and lateral fluoroscopy. After negative aspiration for heme or cerebrospinal fluid, 5 mL of a solution containing 2 mL 40 mg per mL, 80 mg total triamcinolone, 3 mL lidocaine 1% injected slowly. Needle retracted senior care, flushed with 1 mL of 1% lidocaine and removed. Sterile bandage placed over injection site. No new motor deficits present in lower extremity following procedure. The patient tolerated procedure well, carefully escorted [place] [address] PAIN MANAGEMENT CONSULTATION Name: ARLENE MCKAY Room #: REG CLI [facility].#: [id number] Admission: 09/04/18 ������������������ Attend Phys: Nigel Orr DO Discharge: ������������������ Date of : 56 Report #: [id number] stable condition. No apparent complications. After meeting discharge criteria, the patient discharged home. ��������������������������������������������� <ELECTRONICALLY SIGNED> ���������������������������������������� By: Nigel Orr DO ��������������������������������������������� 09/06/18 0841 [id number] Nigel Orr DO /evie
== END | disposition home or self-care (01) ==
LOC: PAIN 06:54
DX: M51.16 Intervertebral disc disorders with radiculopathy, lumbar region (principal); M47.27 Other spondylosis with radiculopathy, lumbosacral region; G89.29 Other chronic pain; Z88.8 Allergy status to other drugs, medicaments and biological substances; Z79.899 Other long term (current) drug therapy; Z87.891 Personal history of nicotine dependence

== ENCOUNTER → 2018-12-12 | Outpatient (CLI) | payer OTHER ==
[~2018-12-12] VITALS: Ht 162.6 cm; Wt 66.0 kg
[2018-12-12 11:10] VITALS: BP 144/86
--- NOTE | 2018-12-12 11:30 | NUR ---
Pain Clinic Assessment: 1. History of Osteoarthritis: Not Applicable History of Rheumatoid Arthritis: Not Applicable 2. Height: 5 ft. 4 in. 162.6 cm. Weight: 145.6 lb. oz. 66.044 kg. Patient's BMI: 25.0 3. Vital Signs: BP: 144/86 Pulse: 61 Resp: 14 Temp: 02 Sat: 99 ECG Mon: 4. Pain Intensity: 5-BACK, NECK-7 5. Fall Risk: Dizziness: N Needs help standing or walking: N Fallen in the last 3 months: N Fall risk comments: 6. Patient on Blood Thinner: None 7. History of Hypertension: N 8. Opioid Therapy greater than 6 weeks: Y Opiate Contract Signed: 03/15/16 9. Risk Assessment Tool Provided: low-1 10. Functional Assessment Tool: 11. Recreational Drug Use: Never Drug Type: Tobacco Use: Former Smoker Tobacco Type: Amount or Packs/day: How Many Years: Alcohol Use: Yes Frequency: Quant:
--- NOTE | 2018-12-18 07:48 | HPC ---
[facility] [address] [place] [address] PAIN MANAGEMENT CONSULTATION Name: NELYARLENE Room #: REG [facility] Naz[facility].#: [id number] Admission: 12/12/18 ������������������ Attend Phys: Nigel Orr DO Discharge: ������������������ Date of : 56 Report #: [id number] THIS REPORT FOR: //name// CC: Nigel Jordan MD DATE OF SERVICE: 12/12/2018 REFERRING PHYSICIAN: Josafat Jordan M.D. CHIEF COMPLAINT: Low back pain, right lower extremity pain with paresthesias and chronic neck pain with right upper extremity pain. HISTORY OF PRESENT ILLNESS: As you know, the patient is a very pleasant 58-year-old female returning in followup visit with a slowly progressing neck pain and right upper extremity pain with paresthesias. She continues to experience fairly stable low back pain and right lower extremity pain. Today, she returns today in followup visit requesting refill on medications. She feels the combination of hydrocodone, gabapentin and Voltaren gel is a good treatment option for her generalized pain. Unfortunately, with the recurrence of neck symptoms and right upper extremity symptoms, she may ultimately have to undergo the next in a series of cervical epidural injections. She wishes to delay that option at this point. She is requesting refill on medications. She denies side effects of the medication including somnolence, decrease in mental acuity, disorientation, confusion and mental slowing. ALLERGIES: OXYCODONE and ACETAMINOPHEN. CURRENT MEDICATIONS: Diclofenac gel 1% solution apply topically up to 4 times a day, gabapentin 900 mg p.o. at bedtime and hydrocodone 10/325 one tab p.o. q. 6 hours p.r.n. for pain. SOCIAL HISTORY: The patient continues to smoke. Denies IV or illicit drug use. Denies any chronic alcohol use. She is currently employed, working, not receiving workmen's compensation, unaccompanied today. IMAGING DATA: There is no new imaging available. PHYSICAL EXAMINATION: VITAL SIGNS: Blood pressure 144/86, pulse is 61 and respiratory rate 14 and unlabored. The patient is 99% on room air. Height 5 feet 4 inches tall, weight 145.6 pounds and BMI calculated at 25. GENERAL: Well-developed, well-nourished and well-hydrated 58-year-old female appearing stated age, pain is rated today at around 7/10 involving the neck and right upper extremity and 5/10 in low back. [facility] [address] [place] [address] PAIN MANAGEMENT CONSULTATION Name: ARLENE MCKAY [facility] #: [facility]#: [id number] Admission: 12/12/18 ������������������ Attend Phys: Nigel Orr DO Discharge: ������������������ Date of : 56 Report #: [id number] HEENT: Normocephalic and atraumatic. Pupils equal, round and reactive to light. EXTREMITIES: Show no clubbing, no cyanosis and no edema. MUSCULOSKELETAL: Upper extremity strength appears equal and symmetrical 5/5. Slight giveaway strength noted with biceps flexion and extension on the right when compared to the left and this is due to pain generation. Cervical provocation testing is met with increasing pain with rotation, lateral flexion of the right. Spurling's test positive, right. There is palpatory tenderness over the paraspinal musculature of lower lumbar spine. No spinous process tenderness. Seated straight leg raising negative. Supine straight leg raising is positive on the right. ASSESSMENT: 1. Chronic cervical radiculopathy. 2. Cervical spondylosis with radiculopathy. 3. Chronic lumbar radiculopathy. 4. Lumbosacral spondylosis with radiculopathy. 5. Lumbar degeneration. 6. Complicated medication management utilizing scheduled medications. 7. Chronic intractable pain. PLAN: 1. The patient returns today in followup visit requesting refill of her medications. She is also considering the option of undergoing a cervical epidural injection but cannot undergo the procedure today due to scheduling conflicts. She is hopeful that with rest, relaxation over the next couple of days, her neck pain and right upper extremity pain will improve. If it does not, she is going to make an appointment back with us to undergo a cervical epidural injection. Today, she returns to receive refill of medications and discuss options for treatment. 2. We have taken the liberty of reviewing the patient's PDMP. There are no aberrant entries. She appears to be filling the medications appropriately and following the opioid agreement that we have between ourselves and the patient. 3. We reviewed the fact that opiate medications are being used to provide analgesia adequate to support activities of daily living, not attempting to achieve a specific pain score on the 0-10 Visual Analog Scale. The current opiate medications are providing sufficient analgesia to allow the patient to participate in activities of daily living. The patient is not exhibiting any aberrant behavior suggestive of drug diversion. The patient is not having any adverse reactions to medications. The patient is not suffering from daytime somnolence or mental acuity changes. The patient is managing opiate-induced constipation with appropriate cugf-jll-crdjrwu agents and dietary considerations. The patient was counseled on concern for caution with operating a motor vehicle while using opiate medications. A physical exam was performed and the patient's functional status was evaluated. [address] [address] PAIN MANAGEMENT CONSULTATION Name: ARLENE MCKAY Room #: REG [facility]#: [id number] Admission: 12/12/18 ������������������ Attend Phys: Nigel Orr DO Discharge: ������������������ Date of : 56 Report #: [id number] All patients with back pain were advised against the bed rest greater than 4 days and were advised to return to normal activities. Pain score assessment was noted and the treatment plan was reviewed with the patient. All current medications, both prescribed and OTC were reviewed and reconciled on the electronic medical record. Tobacco screening was accomplished and smoking cessation was advised when indicated. BMI was noted and diet/exercise modification was recommended for all patients following outside normal parameters. I reviewed with the patient today their responsibilities to safeguard prescription medications, reviewed their responsibility to utilize medications only as prescribed by the physician. They are to seek and receive pain medications only from 1 physician group ( [facility]). They are to use 1 pharmacy and keep the clinic informed if they change pharmacies. Their responsibilities include making followup visits in a timely fashion and to avoid abrupt discontinuation of medication usage. Their responsibilities further include bringing their medications (bottles from the pharmacy with residual pills) to the visit for possible confirmation of pill counts and the patient understands it is their responsibility to submit to random drug screens to ensure both that the medications prescribed are present, and that no other controlled substances are present. All prescriptions provided today were generated electronically. 4. The patient was provided a prescription of gabapentin 300 mg dose 3 tabs p.o. at bedtime, have given the patient #90 tablets, releasing today, 4 weeks from today, 8 weeks from today, 3 months' worth of medication. This is being utilized for her neuropathic pain control. 5. The patient was provided prescription of hydrocodone 10/325 one tab p.o. q. 6 hours p.r.n. for pain. I have given the patient #120, releasing today, 4 weeks from today, 8 weeks from today, 3 months' worth of medication. 6. The patient and I had a very long discussion about ongoing pain issues and alternative treatment options including chiropractic manipulation, myofascial release techniques, acupuncture therapy and percutaneous electrical nerve stimulation, all of which have been shown to be beneficial for both cervical radiculopathy and lumbar radiculopathy. She is going to consider these options. At present, she is currently considering undergoing next in a series of cervical epidural injections but at this time, wishes to delay that option in hoping that rest, relaxation and changes in her activity will improve pain. We have advised the patient we will be available to see her back to undergo this procedure if necessary. 7. The patient will return to our clinic in 3 months for medication management, earlier if interventional treatments might be necessary. ��������������������������������������������� <ELECTRONICALLY SIGNED> ���������������������������������������� By: Nigel Orr DO ��������������������������������������������� 12/18/18 0748 [id number] Nigel Orr DO /nt
== END ==
LOC: PAIN 07:03
DX: M47.27 Other spondylosis with radiculopathy, lumbosacral region (principal); M47.22 Other spondylosis with radiculopathy, cervical region; M51.16 Intervertebral disc disorders with radiculopathy, lumbar region; G89.4 Chronic pain syndrome; Z79.899 Other long term (current) drug therapy

== ENCOUNTER → 2019-03-19 | Outpatient (CLI) | payer OTHER ==
[~2019-03-19] VITALS: Ht 162.6 cm; Wt 69.5 kg
[~2019-03-19] MED LIST changes: +NEURONTIN 300M300 M2 PO
[2019-03-19 13:20] VITALS: BP 121/67
--- NOTE | 2019-03-19 13:37 | NUR ---
Pain Clinic Assessment: 1. History of Osteoarthritis: Not Applicable History of Rheumatoid Arthritis: Not Applicable 2. Height: 5 ft. 4 in. 162.6 cm. Weight: 153.2 lb. oz. 69.491 kg. Patient's BMI: 26.3 3. Vital Signs: BP: 121/67 Pulse: 71 Resp: 14 Temp: 02 Sat: 97 ECG Mon: 4. Pain Intensity: 6 NOW 5. Fall Risk: Dizziness: N Needs help standing or walking: N Fallen in the last 3 months: N Fall risk comments: 6. Patient on Blood Thinner: None 7. History of Hypertension: N 8. Opioid Therapy greater than 6 weeks: Y Opiate Contract Signed: 03/15/16 9. Risk Assessment Tool Provided: low-1 10. Functional Assessment Tool: 11. Recreational Drug Use: Never Drug Type: Tobacco Use: Former Smoker Tobacco Type: Amount or Packs/day: How Many Years: Alcohol Use: Yes Frequency: Quant:
--- NOTE | 2019-03-20 08:36 | HPC ---
[facility] [address] [place] [address] PAIN MANAGEMENT CONSULTATION Name: ARLENE MCKAY Room #: REG [facility] [id number] Admission: 03/19/19 Attend Phys: Elsa Cisneros Discharge: Date of : 56 Report #: [id number] THIS REPORT FOR: //name// CC: Elsa Cisneros Josafat Jordan DATE OF SERVICE: 03/19/2019 CHIEF COMPLAINT: Low back pain, bilateral lower extremity pain and paresthesias, chronic neck pain, right upper extremity pain. HISTORY OF PRESENT ILLNESS: This is a very pleasant 58-year-old female who returns to the pain clinic for refill of her medications. She feels that these are very beneficial in helping control most of her pain, rating it as 6/10 today, though she has noticed a recent increase of feeling pins and needles in the posterior part of her legs from the knees down including the top of her feet. She experiences this increase in pain when she has elevated her legs at the end of the day or is in bed, sleeping. She reports this has been going on for about 6 weeks. The patient reports pain is increased with activity, walking and bending, is better with her medications as well as sitting and using a heating pad. She denies any problems with constipation or daytime sleepiness. ALLERGIES: PERCOCET. CURRENT LIST OF MEDICATIONS: Hydrocodone 10/325 p.r.n., gabapentin 900 mg at bedtime and Voltaren gel as needed. PQRS: 1. She denies any history of osteoarthritis or rheumatoid arthritis. 2. Height is 5 feet 4 inches, weight is 153, BMI is 26. 3. Vital signs 121/67, pulse is 71, respirations 14, oxygen sat is 97. 4. Pain score 6/10. 5. Denies dizziness, does not need help walking or standing, has not fallen in the last 3 months. 6. The patient is not on any blood thinners or hypertension medicines. 7. Opioid therapy is greater than 6 weeks; therefore, an opioid signed contract is on the chart. 8. Risk assessment tool is low. Functional assessment is 32/70. 9. Recreational drug use, she denies. She is a former smoker and does occasionally drink alcohol. PHYSICAL EXAMINATION: GENERAL: This is a well-developed, well-nourished, well-hydrated 58-year-old female who appears her stated age, placing her current pain score at 6/10. [address] [address] PAIN MANAGEMENT CONSULTATION Name: ARLENE MCKAY Room #: REG CLI [facility]#: [id number] Admission: 03/19/19 Attend Phys: Elsa Cisneros Discharge: Date of : 56 Report #: [id number] HEENT: Normocephalic, atraumatic. Pupils equal, round and reactive to light. EXTREMITIES: No clubbing, no cyanosis, no edema. MUSCULOSKELETAL: Cervical provocation testing is met with increasing pain with rotation and lateral flexion. Seated straight leg raising is negative. Increased numbness and tingling in her bilateral lower extremities following the L5-S1 dermatomal distribution. She walks with a normal gait. Lower extremity strength judged to be 5/5 in all major muscle groups. ASSESSMENT: 1. Chronic cervical radiculopathy. 2. Cervical spondylosis with radiculopathy. 3. Chronic lumbar radiculopathy. 4. Lumbosacral spondylosis with radiculopathy. 5. Lumbar degeneration. 6. Complex medical management under terms of scheduled medications. We reviewed the fact that opiate medications are being used to provide analgesia adequate to support activities of daily living, not attempting to achieve a specific pain score on the 0-10 Visual Analog Scale. The current opiate medications are providing sufficient analgesia to allow the patient to participate in activities of daily living. The patient is not exhibiting any aberrant behavior suggestive of drug diversion. The patient is not having any adverse reactions to medications. The patient is not suffering from daytime somnolence or mental acuity changes. The patient is managing opiate-induced constipation with appropriate mrar-vpk-pzwwlbi agents and dietary considerations. The patient was counseled on concern for caution with operating a motor vehicle while using opiate medications. A physical exam was performed and the patient's functional status was evaluated. All patients with back pain were advised against the bed rest greater than 4 days and were advised to return to normal activities. Pain score assessment was noted and the treatment plan was reviewed with the patient. All current medications, both prescribed and OTC were reviewed and reconciled on the electronic medical record. Tobacco screening was accomplished and smoking cessation was advised when indicated. BMI was noted and diet/exercise modification was recommended for all patients following outside normal parameters. I reviewed with the patient today their responsibilities to safeguard prescription medications, reviewed their responsibility to utilize medications only as prescribed by the physician. They are to seek and receive pain medications only from 1 physician group ([facility]). They are to use 1 pharmacy and keep the clinic informed if they change pharmacies. Their responsibilities include making followup visits in a timely fashion and to avoid abrupt discontinuation of medication usage. Their responsibilities further include bringing their medications (bottles from the pharmacy with residual [facility] [address] [place] [address] PAIN MANAGEMENT CONSULTATION Name: ARLENE MCKAY Room #: REG LISSETT Garza#: [id number] Admission: 03/19/19 Attend Phys: Elsa Cisneros Discharge: Date of : 56 Report #: [id number] pills) to the visit for possible confirmation of pill counts and the patient understands it is their responsibility to submit to random drug screens to ensure both that the medications prescribed are present, and that no other controlled substances are present. All prescriptions provided today were generated electronically. PLAN: 1. We discussed treatment options with the patient today. Her current pain regimen of hydrocodone 10/325 up to 4 times a day is quite beneficial in controlling most of her pain. We will refill these scripts today 4 weeks and 8 weeks for 120 pills. This places her at 40 morphine mEq according to the CDC guidelines. According to the prescription monitoring system, she is due to be filled today. 2. The patient has started having increased numbness and tingling in her lower extremities radiating from her knees to the top of her feet. After discussion with the patient as well as Dr. Nigel Orr, I have elected to increase her gabapentin 300 mg 1 midday and three at bedtime for a total of 4 pills a day. Scripts given for 120 with 2 additional refills. 3. We discussed that if the gabapentin was not effective in controlling her neuropathy, that she is to call for an appointment for another lumbar epidural steroid injection. The patient feels that in the past, they were more beneficial than recently. I explained to her that I think it is worth trying again. If neither of the options above are beneficial, then we will seek another MRI and then possibly a surgical consult. 4. The patient is agreeable with this plan. The patient is seen in collaboration today with Dr. Nigel Orr. She will follow up in 3 months if not sooner. <ELECTRONICALLY SIGNED> By: Elsa Cisneros 03/20/19 0836 [id number] [id number] Elsa Cisneros /nt
== END ==
LOC: PAIN 06:56
DX: M47.22 Other spondylosis with radiculopathy, cervical region (principal); M47.27 Other spondylosis with radiculopathy, lumbosacral region; M51.16 Intervertebral disc disorders with radiculopathy, lumbar region; Z79.891 Long term (current) use of opiate analgesic; Z88.8 Allergy status to other drugs, medicaments and biological substances; Z79.899 Other long term (current) drug therapy

== ENCOUNTER → 2019-06-26 | Outpatient (CLI) | payer OTHER ==
[~2019-06-26] VITALS: Ht 162.6 cm; Wt 72.6 kg
[~2019-06-26] MED LIST changes: +NEURONTIN300 MG PO
[2019-06-26 11:02] VITALS: BP 129/78
--- NOTE | 2019-06-26 11:11 | NUR ---
Pain Clinic Assessment: 1. History of Osteoarthritis: Not Applicable History of Rheumatoid Arthritis: Not Applicable 2. Height: 5 ft. 4 in. 162.6 cm. Weight: 160.0 lb. oz. 72.576 kg. Patient's BMI: 27.5 3. Vital Signs: BP: 129/78 Pulse: 76 Resp: 14 Temp: 02 Sat: 97 ECG Mon: 4. Pain Intensity: 5 5. Fall Risk: Dizziness: N Needs help standing or walking: N Fallen in the last 3 months: N Fall risk comments: 6. Patient on Blood Thinner: None 7. History of Hypertension: N 8. Opioid Therapy greater than 6 weeks: Y Opiate Contract Signed: 03/15/16 9. Risk Assessment Tool Provided: low-1 10. Functional Assessment Tool: 11. Recreational Drug Use: Never Drug Type: Tobacco Use: Former Smoker Tobacco Type: Amount or Packs/day: How Many Years: Alcohol Use: Yes Frequency: Quant:
--- NOTE | 2019-06-27 08:28 | HPC ---
[facility] [place] [address] PAIN MANAGEMENT CONSULTATION Name: ARLENE MCKAY Room #: REG [facility] M.Violet.#: [id number] Admission: 06/26/19 Attend Phys: Elsa Cisneros Discharge: Date of : 56 Report #: [id number] THIS REPORT FOR: //name// CC: Elsa Jordan MD DATE OF SERVICE: 06/26/2019 CHIEF COMPLAINT: Low back pain, bilateral lower extremity pain and paresthesias. Chronic neck pain. HISTORY OF PRESENT ILLNESS: This is a very pleasant 59-year-old female who returns to the pain clinic today for refill of her medications. She is reporting her pain score a 5/10. She finds the medications very beneficial, especially with the increase in her gabapentin that she received last time. She takes one in the middle of the day and 3 at bedtime. She feels that has been helping the neuropathic pain in her legs as well as occasionally taking her medications of hydrocodone. She finds these are all beneficial. Her pain is worse with activity, walking and bending, which she does do at work. She feels that heat as well as her medications are very beneficial. She is not requesting a refill of her Voltaren gel at this time. She did not find benefit in that medication. ALLERGIES: OXYCODONE. CURRENT LIST OF MEDICATIONS: Hydrocodone 10/325 every 6 hours p.r.n., gabapentin one in the middle of the day, 3 at night. PQRS: 1. She denies a history of osteoarthritis or rheumatoid arthritis. 2. Height is 5 feet 4 inches, weight is 160, BMI is 27. 3. Vital signs 129/78, pulse is 76, respirations 14, oxygen sat is 97. 4. Pain score is 5/10. 5. Denies dizziness, does not need help walking or standing, has not fallen in the last 3 months. 6. The patient is not on any blood thinners or medicines for hypertension. 7. Opiate therapy is greater than 6 weeks; therefore, an opioid signed contract is on the chart. Risk assessment tool is low. Functional assessment is 32/70. 8. Recreational drug use, she denies. She is a former smoker and occasionally drinks alcohol. According to the prescription monitoring system, the patient is filling her medications appropriately at her pharmacy, filling them every month. According to the CDC guidelines, her morphine mEq is 40 MME per day. There is a recent [facility] [address] [place] [address] PAIN MANAGEMENT CONSULTATION Name: ARLENE MCKAY SHRUTHI Room #: REG CLRashard Mandujano.#: [id number] Admission: 06/26/19 Attend Phys: Elsa Cisneros Discharge: Date of : 56 Report #: [id number] drug screen on the chart. We will repeat that at the next visit as well. PHYSICAL EXAMINATION: GENERAL: This is a well-developed, well-nourished, well-hydrated 59-year-old female who appears her stated age, placing her current pain score 5/10. HEENT: Normocephalic, atraumatic. Pupils equal, round and reactive to light. EXTREMITIES: No clubbing, no cyanosis, no edema. MUSCULOSKELETAL: Seated straight leg raising has numbness. She has increased numbness and tingling in her lower extremities following the L5-S1 dermatomal distribution. She walks with a normal gait. Her lower extremity strength judged to be 5/5 in all major muscle groups. Cervical provocation testing is met with increased pain with flexion and extension. The patient does complain of some increased right wrist pain. No edema noted. ASSESSMENT: 1. Chronic cervical radiculopathy. 2. Chronic spondylosis with radiculopathy. 3. Chronic lumbar radiculopathy. 4. Lumbosacral spondylosis with radiculopathy. 5. Lumbar degeneration. 6. Complex medical management under terms of written opioid agreement. We reviewed the fact that opiate medications are being used to provide analgesia adequate to support activities of daily living, not attempting to achieve a specific pain score on the 0-10 Visual Analog Scale. The current opiate medications are providing sufficient analgesia to allow the patient to participate in activities of daily living. The patient is not exhibiting any aberrant behavior suggestive of drug diversion. The patient is not having any adverse reactions to medications. The patient is not suffering from daytime somnolence or mental acuity changes. The patient is managing opiate-induced constipation with appropriate qsuv-xyn-lgdwtcv agents and dietary considerations. The patient was counseled on concern for caution with operating a motor vehicle while using opiate medications. PLAN: 1. We discussed treatment options with the patient today. We will continue her on her hydrocodone 10/325, #120. These will be filled by Dr. Emiliano Gonzales for 3 months. 2. I will electronically send her gabapentin 300 mg 1 midday and 3 at bedtime, quantity of 120 with 2 additional refills. The patient finds this increase in medicine very beneficial in helping with her leg discomfort. 3. The patient denies any problems or side effects from her medications of constipation or daytime sleepiness. [facility] [address] [place] [address] PAIN MANAGEMENT CONSULTATION Name: NELYARLENE Room #: ABEBE MandujanoAdalberto#: [id number] Admission: 06/26/19 Attend Phys: Elsa Cisneros Discharge: Date of : 56 Report #: [id number] 4. The patient is seen in collaboration with Dr. Emiliano Gonzales who did see the patient as well today. <ELECTRONICALLY SIGNED> By: Elsa Cisneros 06/27/19 0828 1145 2037 Elsa Cisneros /evie
== END ==
LOC: PAIN 06:58
DX: M47.27 Other spondylosis with radiculopathy, lumbosacral region (principal); M51.16 Intervertebral disc disorders with radiculopathy, lumbar region; Z79.891 Long term (current) use of opiate analgesic

== ENCOUNTER → 2019-07-31 | Outpatient (CLI) | payer OTHER ==
[~2019-07-31] VITALS: Ht 162.6 cm; Wt 72.9 kg
[2019-07-31 13:45] VITALS: BP 116/73
--- NOTE | 2019-07-31 14:02 | NUR ---
Pain Clinic Assessment: 1. History of Osteoarthritis: Not Applicable History of Rheumatoid Arthritis: Not Applicable 2. Height: 5 ft. 4 in. 162.6 cm. Weight: 160.8 lb. oz. 72.938 kg. Patient's BMI: 27.6 3. Vital Signs: BP: 116/73 Pulse: 69 Resp: 14 Temp: 02 Sat: 97 ECG Mon: 4. Pain Intensity: 5 5. Fall Risk: Dizziness: N Needs help standing or walking: N Fallen in the last 3 months: N Fall risk comments: 6. Patient on Blood Thinner: None 7. History of Hypertension: N 8. Opioid Therapy greater than 6 weeks: Y Opiate Contract Signed: 03/15/16 9. Risk Assessment Tool Provided: low-1 10. Functional Assessment Tool: 11. Recreational Drug Use: Never Drug Type: Tobacco Use: Former Smoker Tobacco Type: Cigarettes Amount or Packs/day: How Many Years: Alcohol Use: Yes Frequency: Quant:
--- NOTE | 2019-08-06 08:27 | P ---
[facility] [place] [address] [place] [address] PROCEDURE REPORT Name: NELYARLENE Room #: REG [facility]#: [id number] Admission: 07/31/19 Attend Phys: Nigel Orr DO Discharge: Date of : 56 Report #: [id number] THIS REPORT FOR: cc: Josafat Jordan MD, Neal A. MD Johnson, James E. DO ~ DATE OF SERVICE: 07/31/2019 PROCEDURE NOTE PROCEDURE PERFORMED: L5-S1 interlaminar epidural steroid injection under fluoroscopic guidance. DESCRIPTION OF PROCEDURE: After obtaining written consent, the patient was taken back to fluoroscopy suite, placed in prone position with pillow under abdomen to decrease lumbar lordosis. Skin overlying the lumbosacral area prepped and draped in aseptic fashion. The L5-S1 vertebral interspace was identified by AP fluoroscopy. Skin and subcutaneous tissue overlying target site of injection anesthetized with 3 mL of 1% lidocaine. A 20-gauge 3-1/2 inch Tuohy needle advanced under fluoroscopic guidance towards the epidural space using a midline approach. Epidural space identified using loss of resistance to air technique. After negative aspiration for heme or cerebrospinal fluid, 1 mL of Omnipaque injected. Lumbar epidurogram confirmed using both AP and lateral fluoroscopy. After negative aspiration for heme or cerebrospinal fluid, 5 mL of a solution containing 2 mL 40 mg per mL, 80 mg total triamcinolone along with 3 mL of lidocaine 1% injected slowly. Needle retracted residential, flushed with 1 mL of 1% lidocaine and then removed. Sterile bandage placed over injection site. There were no new motor deficits present in the lower extremities following procedure. The patient tolerated procedure well, carefully escorted to recovery room in stable condition. No apparent complications. After meeting discharge criteria, the patient discharged home. <ELECTRONICALLY SIGNED> By: Nigel Orr DO 08/06/19 0827 1514 2239 Nigel Orr DO /nt
--- NOTE | 2019-08-06 08:27 | HPC ---
[facility] [place] [address] PAIN MANAGEMENT CONSULTATION Name: ARLENE MCKAY SHRUTHI Room #: REG [facility].#: [id number] Admission: 07/31/19 Attend Phys: Nigel Orr DO Discharge: Date of : 56 Report #: [id number] THIS REPORT FOR: cc: Josafat Jordan MD, Neal A. MD Johnson, James E. DO ~ DATE OF SERVICE: 07/31/2019 REFERRING PHYSICIAN: Josafat Jordan MD CHIEF COMPLAINT: Low back pain, bilateral lower extremity pain. HISTORY OF PRESENT ILLNESS: As you know, the patient is a very pleasant 59-year-old female who has returned today in followup visit to undergo lumbar epidural injection under fluoroscopic guidance to address recurrent lumbar radicular pain. The patient is placing current pain score at 5/10. She denies new injury or trauma that may have led to symptom reoccurrence. She reports with the previous epidural injection, she received somewhere around 70% improvement in overall pain. Unfortunately, her symptoms have begun to return. She returns to undergo next in series of epidural injections. She states the medications in conjunction with the epidural injections provide good and prolonged benefit, so she is able to go about her activities of daily living and work without pain interference. She returns for the next in the series of epidural injections in the lumbar spine. ALLERGIES: OXYCODONE. CURRENT MEDICATIONS: Hydrocodone 10/325 one tab every 6 hours p.r.n. pain, gabapentin 300 mg in morning and 1200 mg at night, diclofenac gel applied topically 4 times a day. SOCIAL HISTORY: The patient denies IV or illicit drug use. Denies any chronic alcohol use. She continues to smoke. She is working, not receiving Workmen's Compensation or is trying to obtain disability benefits. She is unaccompanied at today's visit. PHYSICAL EXAMINATION: VITAL SIGNS: Blood pressure 116/73, pulse 69, respiratory rate 14 and unlabored, the patient 97% on room air. Height 5 feet 4 inches tall, weight 160.8 pounds, BMI calculated 27.6. GENERAL: A well-developed, well-nourished, well-hydrated 59-year-old female appearing stated age, pain is rated today 5/10. HEENT: Normocephalic, atraumatic. Pupils are equal, round, reactive to light. EXTREMITIES: Show no clubbing, no cyanosis, no edema. [facility] [address] [place] [address] PAIN MANAGEMENT CONSULTATION Name: ARLENE MCKAY SHRUTHI Room #: REG LISSETT MandujanoAdalberto#: [id number] Admission: 07/31/19 Attend Phys: Nigel Orr DO Discharge: Date of : 56 Report #: [id number] MUSCULOSKELETAL: Lower extremity strength appears symmetrical 5/5. Muscle bulk and tone equal and symmetrical in comparing left lower extremity to right. Seated straight leg raising negative. Supine straight leg raising mildly positive, mainly on the right at about 70-degree angle. Ankle clonus negative. Babinski is negative. Gait mildly antalgic favoring this right lower extremity over left. ASSESSMENT: 1. Symptomatic lumbar radiculopathy. 2. Lumbosacral spondylosis with radiculopathy. 3. Lumbar degeneration. 4. Chronic intractable pain. PLAN: 1. The patient returns today in followup visit requesting to undergo a lumbar epidural injection under fluoroscopic guidance to address her 5/10 pain. She denies new injury, new trauma or any changes in medical history since our last visit. She returns today to undergo an epidural injection to address recurrent lumbar radicular symptoms, unimproved with medication management, rest, relaxation and stretching. She has been advised risks and benefits of the procedure, states understood and wished to proceed. 2. No medication changes made at today's visit. The patient will continue current medical therapy as previously prescribed. 3. We will see the patient back in followup visit on an as needed basis for possible next in the series of epidural injections. <ELECTRONICALLY SIGNED> By: Nigel Orr DO 08/06/19 0827 1514 2237 Nigel Orr DO /nt
== END | disposition home or self-care (01) ==
LOC: PAIN 06:58
DX: M51.16 Intervertebral disc disorders with radiculopathy, lumbar region (principal); M47.27 Other spondylosis with radiculopathy, lumbosacral region; G89.29 Other chronic pain; Z98.890 Other specified postprocedural states; Z79.899 Other long term (current) drug therapy; Z88.8 Allergy status to other drugs, medicaments and biological substances; Z79.891 Long term (current) use of opiate analgesic

== ENCOUNTER → 2019-09-18 | Outpatient (CLI) | payer OTHER ==
[~2019-09-18] VITALS: Ht 162.6 cm; Wt 65.9 kg
--- NOTE | ~2019-09-18 | HPC ---
[facility] [address] [place] [address] PAIN MANAGEMENT CONSULTATION Name: ARLENE MCKAY SHRUTHI Room #: REG [facility].#: [id number] Admission: 09/18/19 Attend Phys: Nigel Orr DO Discharge: Date of : 56 Report #: [id number] THIS REPORT FOR: cc: Josafat Jordan MD, Neal A. MD Johnson, James E. DO ~ CC: Nigel Jordan MD DATE OF SERVICE: 09/18/2019 CHIEF COMPLAINT: Low back pain, bilateral lower extremity pain with paresthesias, chronic neck pain and right head pain. HISTORY OF PRESENT ILLNESS: As you know, the patient is a very pleasant 59-year-old female who returns today in followup visit for medication management. She continues to experience low back pain, bilateral lower extremity symptoms for which she places pain score of 5/10. She is also complaining of neck pain, mainly on the right side with radiation towards the occiput consistent with cervical facet arthropathy. As you are aware, we have treated the patient not only for cervical radicular symptoms and facet arthropathy pain, but also for lumbar radicular pain. She returns today requesting refill on medications other than the new increasing neck pain. She has been doing very well. She continues to work and participate in daily activities. She returns today for medication management. She is denying side effects of sleepiness, disorientation, confusion, mental slowing with use of medication. She states that with the medication, she is able to go about the majority of her activities of daily living without significant pain. ALLERGIES: OXYCODONE. CURRENT MEDICATIONS: Hydrocodone 10/325 one tab every 6 hours p.r.n. pain, gabapentin 300 mg morning and 1200 mg at night, diclofenac gel applied topically up to 4 times a day. SOCIAL HISTORY: The patient continues to smoke. Denies IV or illicit drug use. Denies any chronic alcohol use. She is working, not receiving workmen's compensation, unaccompanied today. IMAGING: No new imaging available. PHYSICAL EXAMINATION: VITAL SIGNS: Blood pressure 121/75, pulse 67, respiratory rate 14 and unlabored. The patient is 98% on room air. Height 5 feet 4 inches tall, weight 145.2 pounds, BMI calculated at 24.9. [address] [address] PAIN MANAGEMENT CONSULTATION Name: NELYARLENE JO Room #: REG [facility] Kayla#: [id number] Admission: 09/18/19 Attend Phys: Nigel Orr DO Discharge: Date of : 56 Report #: [id number] GENERAL: Well-developed, well-nourished, well-hydrated 59-year-old female appearing stated age, pain is rated today 5/10. HEENT: Normocephalic, atraumatic. Pupils equal, round, reactive to light. NEUROLOGIC: Speech fluent. The patient deemed a good historian. EXTREMITIES: Show no clubbing, no cyanosis, no edema. MUSCULOSKELETAL: Lower extremity strength as well as upper extremity strength equal and symmetrical 5/5. Muscle bulk and tone is symmetrical in comparing the upper extremities together and the lower extremities together. Seated straight leg raising negative. Supine straight leg raising is mildly positive on the right. Spurling's test elicits only axial cervical spine pain. I am unable to elicit cervical radicular symptoms today. Restriction of motion is noted with rightward rotation of the cervical spine as well as lateral flexion of the cervical spine to the right. ASSESSMENT: 1. Chronic lumbar radiculopathy. 2. Lumbosacral spondylosis with radiculopathy. 3. Lumbar degeneration. 4. Cervicalgia. 5. Cervical spondylosis without current radicular symptoms. 6. Myofascial pain. 7. Chronic intractable pain. PLAN: 1. The patient returns today in followup visit, complaining of increasing right neck pain with radiation towards the occiput classic for facet arthropathy pain. The patient reports that taking ibuprofen bubn-hct-avklije 200 mg tablets 2-3 times a day has been beneficial for pain control relieving the symptoms near entirely. She reports that she has made some adjustments in her pillows, but has noted no improvement. She is going to switch to a contour pillow starting this evening, which I believe will place her on a more anatomically correct position and likely reduce some of her symptoms. We recommend she continue the anti-inflammatories on an as needed basis. 2. We reviewed the fact that opiate medications are being used to provide analgesia adequate to support activities of daily living, not attempting to achieve a specific pain score on the 0-10 Visual Analog Scale. The current opiate medications are providing sufficient analgesia to allow the patient to participate in activities of daily living. The patient is not exhibiting any aberrant behavior suggestive of drug diversion. The patient is not having any adverse reactions to medications. The patient is not suffering from daytime somnolence or mental acuity changes. The patient is managing opiate-induced constipation with appropriate obej-jxg-uvokuoy agents and dietary considerations. The patient was counseled on concern for caution with operating a motor vehicle while using opiate medications. A physical exam was performed and the patient's functional status was evaluated. [address] [address] PAIN MANAGEMENT CONSULTATION Name: ARLENE MCKAY Room #: REG [facility]#: [id number] Admission: 09/18/19 Attend Phys: Nigel Orr DO Discharge: Date of : 56 Report #: [id number] All patients with back pain were advised against the bed rest greater than 4 days and were advised to return to normal activities. Pain score assessment was noted and the treatment plan was reviewed with the patient. All current medications, both prescribed and OTC were reviewed and reconciled on the electronic medical record. Tobacco screening was accomplished and smoking cessation was advised when indicated. BMI was noted and diet/exercise modification was recommended for all patients following outside normal parameters. I reviewed with the patient today their responsibilities to safeguard prescription medications, reviewed their responsibility to utilize medications only as prescribed by the physician. They are to seek and receive pain medications only from 1 physician group ( [facility]). They are to use 1 pharmacy and keep the clinic informed if they change pharmacies. Their responsibilities include making followup visits in a timely fashion and to avoid abrupt discontinuation of medication usage. Their responsibilities further include bringing their medications (bottles from the pharmacy with residual pills) to the visit for possible confirmation of pill counts and the patient understands it is their responsibility to submit to random drug screens to ensure both that the medications prescribed are present, and that no other controlled substances are present. All prescriptions provided today were generated electronically. 3. The patient was provided prescription of Valentines 10/325 one tab p.o. q. 6 hours p.r.n. for pain. I have given the patient #120, releasing today, 4 weeks from today and 8 weeks from today, 3 months' worth of medication. Prescriptions were all sent via E-scribe to local pharmacy. 4. The patient was provided prescription of gabapentin 300 mg dose for which she takes 1 tab in the morning and 4 tabs at night. I have given the patient #120 tablets, releasing today with 2 refills. Prescription was sent via E-scribe to local pharmacy. 5. We will see the patient back in followup visit on an as needed basis for next in the series of injections whether we address the cervical issues that she is experiencing today or possibly her lumbar radiculopathy will be determined by the patient. We will plan to see the patient back in followup visit in 3 months for medication management. By: [id number] iNgel Orr DO /nt
[2019-09-18 13:05] VITALS: BP 121/75
--- NOTE | 2019-09-18 13:15 | NUR ---
Pain Clinic Assessment: 1. History of Osteoarthritis: SPINE History of Rheumatoid Arthritis: DENIES 2. Height: 5 ft. 4 in. 162.6 cm. Weight: 145.2 lb. oz. 65.862 kg. Patient's BMI: 24.9 3. Vital Signs: BP: 121/75 Pulse: 67 Resp: 14 Temp: 02 Sat: 98 ECG Mon: 4. Pain Intensity: 5 5. Fall Risk: Dizziness: N Needs help standing or walking: N Fallen in the last 3 months: N Fall risk comments: 6. Patient on Blood Thinner: None 7. History of Hypertension: N 8. Opioid Therapy greater than 6 weeks: Y Opiate Contract Signed: 03/15/16 9. Risk Assessment Tool Provided: low-1 10. Functional Assessment Tool: 11. Recreational Drug Use: Never Drug Type: Tobacco Use: Former Smoker Tobacco Type: Amount or Packs/day: How Many Years: Alcohol Use: Yes Frequency: Weekly Quant:
== END ==
LOC: PAIN 08:46
DX: M47.27 Other spondylosis with radiculopathy, lumbosacral region (principal); M51.36 Other intervertebral disc degeneration, lumbar region; M79.604 Pain in right leg; M79.605 Pain in left leg; R20.2 Paresthesia of skin; M54.2 Cervicalgia; R51 Headache; Z88.8 Allergy status to other drugs, medicaments and biological substances; Z79.899 Other long term (current) drug therapy

== ENCOUNTER → 2019-11-20 | Outpatient (CLI) | payer OTHER ==
[~2019-11-20] VITALS: Ht 162.6 cm; Wt 66.2 kg
[2019-11-20 14:51] VITALS: BP 134/79
--- NOTE | 2019-11-20 14:56 | NUR ---
Pain Clinic Assessment: 1. History of Osteoarthritis: SPINE History of Rheumatoid Arthritis: DENIES 2. Height: 5 ft. 4 in. 162.6 cm. Weight: 146.0 lb. oz. 66.225 kg. Patient's BMI: 25.0 3. Vital Signs: BP: 134/79 Pulse: 73 Resp: 16 Temp: 02 Sat: 97 ECG Mon: 4. Pain Intensity: 4 5. Fall Risk: Dizziness: N Needs help standing or walking: N Fallen in the last 3 months: N Fall risk comments: 6. Patient on Blood Thinner: None 7. History of Hypertension: N 8. Opioid Therapy greater than 6 weeks: Y Opiate Contract Signed: 03/15/16 9. Risk Assessment Tool Provided: low-1 10. Functional Assessment Tool: 11. Recreational Drug Use: Never Drug Type: Tobacco Use: Former Smoker Tobacco Type: Amount or Packs/day: How Many Years: Alcohol Use: Yes Frequency: Special Occasions Quant: 1-3
--- NOTE | 2019-11-21 08:52 | HPC ---
[facility] [address] [place] [address] PAIN MANAGEMENT CONSULTATION Name: ARLENE MCKAY SHRUTHI Room #: REG [facility] M..#: [id number] Admission: 11/20/19 Attend Phys: Elsa Cisneros Discharge: Date of : 56 Report #: [id number] THIS REPORT FOR: cc: Josafat Jordan MD, Neal A. MD Hocker, Amanda CNS ~ CC: Elsa Orr DO DATE OF SERVICE: 11/20/2019 CHIEF COMPLAINT: Low back pain, bilateral lower extremity pain and paresthesias, chronic neck pain. HISTORY OF PRESENT ILLNESS: As you know, this is a very pleasant 59-year-old female who returns to the pain clinic today for refill of her medications. She continues to have ongoing low back pain. Today, she is also complaining of neck pain and pain in her hand, stating that she feels like she has an arthritic joint nodule on her middle finger of the left hand. She reports that this does come and go. Her pain score today is 4/10. It is an aching, cramping, pins and needles feeling that is worse with activity, walking and bending over. She feels that the medication as well as heat and sitting are beneficial. She would like refills today of the gabapentin that she feels benefits her with decreased numbness and tingling feeling as well as her pain medication. ALLERGIES: OXYCODONE. CURRENT LIST OF MEDICATIONS: Hydrocodone 10/325 up to 4 times a day, gabapentin 300 mg. PQRS: 1. The patient has osteoarthritis in her spine. Denies any rheumatoid arthritis. 2. Height is 5 feet 4 inches, weight is 146, BMI is 25. 3. Vital signs 134/79, pulse is 73, respirations 16, oxygen sat is 97. 4. Pain score is 4/10. 5. Denies dizziness, does not need help walking or standing, has not fallen in the last 3 months. 6. The patient is not on any blood thinners or medicine for hypertension. 7. Opioid therapy is greater than 6 weeks; therefore, an opioid signed contract is on the chart. Risk assessment tool is low. Functional assessment is 32/70. 8. Recreational drug use, she denies. She is a former smoker and does drink alcohol. According to the prescription monitoring system, the patient is due to fill her medications this week. She is filling them in a timely fashion. Her morphine [facility] [address] [place] [address] PAIN MANAGEMENT CONSULTATION Name: ARLENE MCKAY Room #: REG [facility].#: [id number] Admission: 11/20/19 Attend Phys: Elsa Cisneros Discharge: Date of : 56 Report #: [id number] mEq according to the CDC guidelines is 40. PHYSICAL EXAMINATION: GENERAL: This is a well-developed, well-nourished, well-hydrated 59-year-old female who appears her stated age, placing her current pain score at 4/10. HEENT: Normocephalic, atraumatic. Pupils equal, round and reactive to light. She is wearing a mask. Her speech is fluent. She is a good historian. EXTREMITIES: No clubbing, no cyanosis, no edema. Does complain of some tenderness in her middle, distal knuckle of her left hand. MUSCULOSKELETAL: Does complain of some neck pain today that does increase with rotation of her cervical spine and lateral side to side tilt with no radicular symptoms. Tenderness in her lumbosacral region. Seated straight leg raising is negative. Lower extremity strength in her upper and lower extremities is equal and symmetrical at 5/5. IMPRESSION: 1. Chronic lumbar radiculopathy. 2. Cervicalgia. 3. Cervical spondylosis without radicular symptoms. 4. Lumbosacral spondylosis with radiculopathy. 5. Lumbar degeneration. 6. Chronic intractable pain. We reviewed the fact that opiate medications are being used to provide analgesia adequate to support activities of daily living, not attempting to achieve a specific pain score on the 0-10 Visual Analog Scale. The current opiate medications are providing sufficient analgesia to allow the patient to participate in activities of daily living. The patient is not exhibiting any aberrant behavior suggestive of drug diversion. The patient is not having any adverse reactions to medications. The patient is not suffering from daytime somnolence or mental acuity changes. The patient is managing opiate-induced constipation with appropriate wfyu-eci-bkxxbzd agents and dietary considerations. The patient was counseled on concern for caution with operating a motor vehicle while using opiate medications. PLAN: 1. We discussed treatment options with the patient today. The patient is complaining of pain in her middle finger. She believes it as arthritic changes. I encouraged her to use her Voltaren gel on a daily basis for at least a week to see if this does decrease inflammation that may be present in that arthritic joint. 2. We will refill her gabapentin and hydrocodone. The patient takes these on a daily basis. Scripts will be sent electronically by Dr. Nigel Orr for hydrocodone 10, #120 for today for an 8-week release and a 3-month supply of gabapentin will be sent. 3. At the next visit, the patient will be tested for random drug screen and has [address] [address] PAIN MANAGEMENT CONSULTATION Name: ARLENE MCKAY Room #: [facility] Garza#: [id number] Admission: 11/20/19 Attend Phys: Elsa Cisneros Discharge: Date of : 56 Report #: [id number] been greater than a year since the last one was performed. 4. The patient is seen in collaboration with Dr. Nigel Orr. <ELECTRONICALLY SIGNED> By: Elsa Cisneros 11/21/19 0852 1532 09 Elsa Cisneros /evie
== END ==
LOC: PAIN 07:01
PROVIDERS: ATTEND Clinical Nurse Specialist Adult Health
DX: M47.27 Other spondylosis with radiculopathy, lumbosacral region (principal); M47.812 Spondylosis without myelopathy or radiculopathy, cervical region; M79.604 Pain in right leg; M79.605 Pain in left leg; R20.2 Paresthesia of skin; M51.16 Intervertebral disc disorders with radiculopathy, lumbar region; Z88.8 Allergy status to other drugs, medicaments and biological substances; Z79.899 Other long term (current) drug therapy

== ENCOUNTER → 2020-03-04 | Outpatient (CLI) | payer OTHER ==
[~2020-03-04] VITALS: Ht 162.6 cm; Wt 67.8 kg
[2020-03-04 09:15] VITALS: BP 124/79
--- NOTE | 2020-03-04 09:30 | NUR ---
Pain Clinic Assessment: 1. History of Osteoarthritis: SPINE History of Rheumatoid Arthritis: DENIES 2. Height: 5 ft. 4 in. 162.6 cm. Weight: 149.4 lb. oz. 67.767 kg. Patient's BMI: 25.6 3. Vital Signs: BP: 124/79 Pulse: 72 Resp: 16 Temp: 02 Sat: 97 ECG Mon: 4. Pain Intensity: 4-5 5. Fall Risk: Dizziness: N Needs help standing or walking: N Fallen in the last 3 months: N Fall risk comments: 6. Patient on Blood Thinner: None 7. History of Hypertension: N 8. Opioid Therapy greater than 6 weeks: Y Opiate Contract Signed: 03/15/16 9. Risk Assessment Tool Provided: low-1 10. Functional Assessment Tool: 11. Recreational Drug Use: Never Drug Type: Tobacco Use: Former Smoker Tobacco Type: Amount or Packs/day: How Many Years: Alcohol Use: Yes Frequency: Quant:
--- NOTE | 2020-03-05 12:48 | HPC ---
[facility] [address] [address] PAIN MANAGEMENT CONSULTATION Name: ARLENE MCKAY SHRUTHI Room #: REG [facility]..#: [id number] Admission: 03/04/20 Attend Phys: Elsa Cisneros Discharge: Date of : 56 Report #: [id number] THIS REPORT FOR: cc: Josafat Jordan MD, Neal A. MD Hocker,Elsa ZUNIGA ~ CC: IQRA CUELLAR DO DATE OF SERVICE: 03/04/2020 CHIEF COMPLAINT: Low back pain, bilateral lower extremity pain and paresthesias, chronic neck pain. HISTORY OF PRESENT ILLNESS: As you know, this is a pleasant 59-year-old female who has a long time patient of Dr. Iqra Cuellar, who returns to the pain clinic today for her medication refill. Our last visit with her was in November. She has been doing quite well until just recently when her feet have started hurting again, especially at night when they are elevated and any pressure is applied to them at times she reports her shoes feel tight. It is an aching, cramping, tingling sensation. She also continues to have pain in her lower back as well as her neck and elbow. Activity and walking as well as bending for work do increase her pain. Overall, she fills the medication as well as heat and sitting are beneficial and continues to take her hydrocodone and gabapentin as prescribed. She denies problems with constipation or daytime somnolence as a result of her medicines. Today, she would like refills of her medication. ALLERGIES: OXYCODONE. CURRENT LIST OF MEDICATIONS: Estrace, hydrocodone 10/325 p.r.n., and gabapentin 300 mg in the afternoon and 900 mg at night. PATIENT'S PQRS: 1. She has osteoarthritic changes in her spine and elbow. Denies rheumatoid arthritis. 2. Height is 5 feet 4 inches, weight is 149, BMI is 25. 3. Vital signs: 124/79, pulse is 72, respirations 16, oxygen sat is 97%. Pain score is 4-5. 4. Fall risk. Denies dizziness, does not need help walking or standing, has not fallen in the last 3 months. The patient is not on any blood thinners or medicine for hypertension. Opioid therapy is greater than 6 weeks; therefore, an opioid signed contract is on the chart. Her risk assessment is low. Functional assessment is 40/70. 5. Recreational drug use, she denies. She is a former smoker and does drink alcohol. According to the prescription monitoring system, she last filled her prescription 02/04/2020, filling them in a timely fashion or slightly longer between fills than 30 days. Her morphine mEq is 40 MME or below. We will check [address] [address] PAIN MANAGEMENT CONSULTATION Name: ARLENE MCKAY Room #: REG CLI Kayla#: [id number] Admission: 03/04/20 Attend Phys: Elsa Cisneros Discharge: Date of : 56 Report #: [id number] a random drug screen on this patient today. PHYSICAL EXAMINATION: GENERAL: This is a well-developed, well-nourished, well-hydrated 59-year-old female who appears her stated age, placing her current pain score at 4/10 today. HEENT: Normocephalic, atraumatic. Pupils equal, round and reactive to light. NEUROLOGICAL: Speech is fluent and she is a good historian. EXTREMITIES: No clubbing, no cyanosis, no edema. Lower extremities, seated straight leg raising is negative. She has no cervical radicular symptoms today. Restrictive range of motion of her cervical spine. Her lower extremity strength is symmetrical at 5/5 as well as her upper extremity muscle bulk and tone are symmetrical as well. Numbness and tingling located in her lower extremities and pain increases in her bilateral feet with ambulation. ASSESSMENT: 1. Chronic lumbar radiculopathy. 2. Lumbosacral spondylosis with radiculopathy. 3. Lumbar degeneration. 4. Cervicalgia. 5. Cervical spondylosis without radicular symptoms currently. 6. Chronic intractable pain. 7. Opioid medication management under written agreement. We reviewed the fact that opiate medications are being used to provide analgesia adequate to support activities of daily living, not attempting to achieve a specific pain score on the 0-10 Visual Analog Scale. The current opiate medications are providing sufficient analgesia to allow the patient to participate in activities of daily living. The patient is not exhibiting any aberrant behavior suggestive of drug diversion. The patient is not having any adverse reactions to medications. The patient is not suffering from daytime somnolence or mental acuity changes. The patient is managing opiate-induced constipation with appropriate miux-vbj-wcxllls agents and dietary considerations. The patient was counseled on concern for caution with operating a motor vehicle while using opiate medications. A physical exam was performed and the patient's functional status was evaluated. All patients with back pain were advised against the bed rest greater than 4 days and were advised to return to normal activities. Pain score assessment was noted and the treatment plan was reviewed with the patient. All current medications, both prescribed and OTC were reviewed and reconciled on the electronic medical record. Tobacco screening was accomplished and smoking cessation was advised when indicated. BMI was noted and diet/exercise modification was recommended for all patients following outside normal parameters. I reviewed with the patient today their responsibilities to safeguard [facility] [address] [place] [address] PAIN MANAGEMENT CONSULTATION Name: ARLENE MCKAY Room #: REG [facility].#: [id number] Admission: 03/04/20 Attend Phys: Elsa Cisneros Discharge: Date of : 56 Report #: [id number] prescription medications, reviewed their responsibility to utilize medications only as prescribed by the physician. They are to seek and receive pain medications only from 1 physician group ( [facility]). They are to use 1 pharmacy and keep the clinic informed if they change pharmacies. Their responsibilities include making followup visits in a timely fashion and to avoid abrupt discontinuation of medication usage. Their responsibilities further include bringing their medications (bottles from the pharmacy with residual pills) to the visit for possible confirmation of pill counts and the patient understands it is their responsibility to submit to random drug screens to ensure both that the medications prescribed are present, and that no other controlled substances are present. All prescriptions provided today were generated electronically. PLAN: 1. We discussed treatment options with the patient today. Based on the patient's report of increasing bilateral foot pain and increase in lumbar radiculopathy symptoms, I believe that she may benefit from another epidural steroid injection, Dr. Iqra Cuellar has performed these in the past. She does get good improvement of her symptoms with these injections. Her last one was in July. We will schedule her for an injection next week prior to getting her flu vaccination at work. Her previous improvement was at least 80% for greater than a month. 2. We will refill her hydrocodone today , #120. These will be sent for [address] Iqra Cuellar. 3. I will send her gabapentin 300 mg, #120, with 5 additional refills. 4. We did discuss arthritic changes that she is experiencing in her elbow as well as her back. The patient is not taking any nonsteroidal anti-inflammatories. We will trial naproxen 500 mg, the patient to take twice a day for at least a week then decrease if her symptoms have resolved slightly. We will send #60 with 5 additional refills to her pharmacy. The patient instructed to take this medication with food to avoid any GI side effects. 5. Appointment made for the patient for next week. The patient is seen today in collaboration with Dr. Iqra Cuellar. <ELECTRONICALLY SIGNED> By: Elsa Cisneros 03/05/20 1248 [id number] Elsa Cisneros /nt
== END ==
LOC: PAIN 06:46
PROVIDERS: ATTEND Clinical Nurse Specialist Adult Health
DX: M47.27 Other spondylosis with radiculopathy, lumbosacral region (principal); M51.16 Intervertebral disc disorders with radiculopathy, lumbar region; M79.604 Pain in right leg; M79.605 Pain in left leg; R20.2 Paresthesia of skin; G89.29 Other chronic pain; M47.812 Spondylosis without myelopathy or radiculopathy, cervical region; F11.20 Opioid dependence, uncomplicated; Z88.8 Allergy status to other drugs, medicaments and biological substances; Z79.899 Other long term (current) drug therapy

== ENCOUNTER → 2020-03-10 | Outpatient (CLI) | payer OTHER ==
[~2020-03-10] VITALS: Ht 162.6 cm; Wt 66.8 kg
--- NOTE | ~2020-03-10 | HPC ---
[facility] [address] [place] [address] PAIN MANAGEMENT CONSULTATION Name: ARLENE MCKAY SHRUTHI Room #: REG [facility].#: [id number] Admission: 03/10/20 Attend Phys: Nigel Orr DO Discharge: Date of : 56 Report #: [id number] CC: Nigel Jordan MD DATE OF SERVICE: 03/10/2020 REFERRING PHYSICIAN: Josafat Jordan MD CHIEF COMPLAINT: Low back pain, bilateral lower extremity pain with paresthesias. HISTORY OF PRESENT ILLNESS: As you know, the patient is a very pleasant 59-year-old female who has returned today in followup visit to undergo lumbar epidural injection under fluoroscopic guidance to address recurrent lumbar radicular pain. She is placing her current pain score at 5/10. She denies new injury, new trauma or any changes in medical history since our last visit. She indicates her pain has slowly and progressively returned. With increasing activities her pain tends to exacerbate. She returns today to undergo a lumbar epidural injection in hopes of improving pain. As you are aware, the patient has received excellent benefit with previous epidural injections. ALLERGIES: OXYCODONE. CURRENT MEDICATIONS: Estrace, hydrocodone, gabapentin. SOCIAL HISTORY: The patient continues to work. She denies chronic alcohol use. Denies any chronic IV or illicit drug use. She is unaccompanied at today's visit. IMAGING: No new imaging available. PHYSICAL EXAMINATION: VITAL SIGNS: Blood pressure 130/86, pulse 71, respiratory rate 16 and unlabored. The patient is 98% on room air. Height 5 feet 4 inches tall, weight 147.2 pounds, BMI calculated 25.3. GENERAL: Well-developed, well-nourished, well-hydrated 59-year-old female appearing stated age. Pain is rated today at 5/10. HEENT: Normocephalic, atraumatic. Pupils equal, round and reactive to light. Extraocular muscles are intact. EXTREMITIES: Show no clubbing, no cyanosis. No appreciable edema. MUSCULOSKELETAL: Lower extremity strength is symmetrical again today 5/5. Muscle bulk and tone equal and symmetrical when comparing left lower extremity to right. Seated straight leg raising negative. Supine straight leg raising is positive at about 60-70 degree angle on the right when compared to left. Ankle clonus negative. Babinski is negative. Gait appears normal. ASSESSMENT: 1. Lumbar radiculopathy. 2. Lumbosacral spondylosis with radiculopathy. 3. Lumbar degeneration. PLAN: 1. The patient returns today in followup visit with continued low back pain, lower extremity pain with paresthesias that is noted bilaterally. The patient indicates good efficacy with previous epidural injections up to 80% improvement in overall pain. Unfortunately, her symptoms have begun to return. She denies injury or trauma that may have led to symptom development. She returns requesting the next in the series of epidural injections. The patient has been advised of the risks and the benefits of this procedure. These risks include but are not necessarily limited to bleeding, bruising, infection, worsening pain, no relief of pain and also risk of temporary or permanent muscle weakness, temporary or permanent nerve damage, possible paralysis and . The patient states understood and wished to proceed. 2. No medication changes made at today's visit. The patient was seen on 03/04/2020 and received refill of medications and does not need further refills or adjustments at this time. 3. We plan to see the patient back in followup visit 3 months from her appointment of 03/04/2020 for medication management. She can return earlier for another in the series of epidural injections as necessary. PROCEDURE NOTE: DESCRIPTION OF PROCEDURE: L5-S1 intralaminar epidural steroid injection under fluoroscopic guidance. After obtaining written consent, the patient was taken back to fluoroscopy suite, placed in prone position with pillow under abdomen to decrease lumbar lordosis. Skin overlying the lumbosacral area prepped and draped in aseptic fashion. Lumbar intervertebral spaces were identified by AP fluoroscopy. Skin and subcutaneous tissue overlying the target site of injection anesthetized with 3 mL of 1% lidocaine. A 20-gauge 3-1/2 inch Tuohy needle advanced under fluoroscopic guidance towards the epidural space using a parasagittal approach. Epidural space identified using loss of resistance to air technique. After negative aspiration for heme or cerebrospinal fluid, 1 mL of Omnipaque injected. Lumbar epidurogram confirmed using both AP and lateral fluoroscopy. After negative aspiration for heme or cerebrospinal fluid, 5 mL of solution containing 2 mL 40 mg per mL, 80 mg total triamcinolone along with 3 mL of lidocaine 1% injected slowly. Needle then retracted approximately half way, flushed with 1 mL of 1% lidocaine and then removed. Sterile bandage placed over the injection site. There were no new motor deficits present in the lower extremities following procedure. The patient tolerated the procedure well, carefully escorted to recovery room in stable condition. No apparent complications. After meeting discharge criteria, the patient discharged home. By: [id number] Nigel Orr DO /nt
[2020-03-10 13:25] VITALS: BP 130/86
--- NOTE | 2020-03-10 13:42 | NUR ---
Pain Clinic Assessment: 1. History of Osteoarthritis: SPINE History of Rheumatoid Arthritis: DENIES 2. Height: 5 ft. 4 in. 162.6 cm. Weight: 147.2 lb. oz. 66.769 kg. Patient's BMI: 25.3 3. Vital Signs: BP: 130/86 Pulse: 71 Resp: 16 Temp: 02 Sat: 98 ECG Mon: 4. Pain Intensity: 5 5. Fall Risk: Dizziness: N Needs help standing or walking: N Fallen in the last 3 months: N Fall risk comments: 6. Patient on Blood Thinner: None 7. History of Hypertension: N 8. Opioid Therapy greater than 6 weeks: Y Opiate Contract Signed: 03/15/16 9. Risk Assessment Tool Provided: low-1 10. Functional Assessment Tool: 11. Recreational Drug Use: Never Drug Type: Tobacco Use: Former Smoker Tobacco Type: Amount or Packs/day: How Many Years: Alcohol Use: Yes Frequency: Quant:
== END | disposition home or self-care (01) ==
LOC: PAIN 06:55
PROVIDERS: ATTEND Anesthesiology Pain Medicine
DX: M51.16 Intervertebral disc disorders with radiculopathy, lumbar region (principal); M47.27 Other spondylosis with radiculopathy, lumbosacral region; G89.29 Other chronic pain; Z98.890 Other specified postprocedural states; Z79.899 Other long term (current) drug therapy; Z87.891 Personal history of nicotine dependence; Z88.8 Allergy status to other drugs, medicaments and biological substances

== ENCOUNTER → 2020-06-17 | Outpatient (CLI) | payer OTHER ==
[~2020-06-17] VITALS: Ht 162.6 cm; Wt 66.2 kg
[2020-06-17 12:27] VITALS: BP 118/83
--- NOTE | 2020-06-17 12:31 | NUR ---
Pain Clinic Assessment: 1. History of Osteoarthritis: SPINE History of Rheumatoid Arthritis: DENIES 2. Height: 5 ft. 4 in. 162.6 cm. Weight: 146.0 lb. oz. 66.225 kg. Patient's BMI: 25.0 3. Vital Signs: BP: 118/83 Pulse: 71 Resp: 14 Temp: 02 Sat: 98 ECG Mon: 4. Pain Intensity: 4 5. Fall Risk: Dizziness: N Needs help standing or walking: N Fallen in the last 3 months: N Fall risk comments: 6. Patient on Blood Thinner: None 7. History of Hypertension: N 8. Opioid Therapy greater than 6 weeks: Y Opiate Contract Signed: 03/15/16 9. Risk Assessment Tool Provided: low-1 10. Functional Assessment Tool: 11. Recreational Drug Use: Never Drug Type: Tobacco Use: Former Smoker Tobacco Type: Amount or Packs/day: How Many Years: Alcohol Use: Yes Frequency: Quant:
--- NOTE | 2020-06-19 07:29 | HPC ---
[facility] [address] [address] PAIN MANAGEMENT CONSULTATION Name: ARLENE MCKAY SHRUTHI [facility] [id number] Admission: 06/17/20 Attend Phys: Elsa Cisneros Discharge: Date of : 56 Report #: [id number] THIS REPORT FOR: cc: Josafat Jordan MD, Neal A. MD Hocker,Elas Gao DATE OF SERVICE: 06/17/2020 CHIEF COMPLAINT: Low back pain, bilateral lower extremity pain and paresthesias and cervical radiculopathy. HISTORY OF PRESENT ILLNESS: As you know, this is a pleasant 60-year-old female who returns to the pain clinic today to have her medications refilled. Today, she is reporting ongoing pain in her low back with no radicular symptoms today. She occasionally does experience pain in her legs. She has ongoing cervical pain that radiates into her head. Today, rating her pain score a 4/10. She is describing it as aching, tingling and occasionally sharp sensation that is worse with activity, walking and bending. She states her medication has been beneficial as well as heat and sitting. The patient underwent an epidural in March. She reports 75% efficacy from that injection that lasted at least 2 months. Today, she would like refills of her medication. She denies any daytime somnolence or constipation as a result of these medications. The patient is wondering about having her lumbar back nerves burned again per her request, she has had these in the past, she believes it was about 2 years ago. She felt that was beneficial and is wondering about possibly having that procedure done in the future by Dr. Nigel Orr and would like to discuss that as well today. ALLERGIES: OXYCODONE. CURRENT LIST OF MEDICATIONS: Hydrocodone 10/325 t.i.d., nabumetone, gabapentin, Estrace. PQRS: 1. She has osteoarthritis in her spine. Denies any rheumatoid arthritis. 2. Height is 5 feet 4 inches, weight is 146, BMI is 25. 3. Vital signs 118/83, pulse is 71, respirations 14, oxygen sat is 98%. 4. Pain score is 4/10. 5. Denies dizziness, does not need help walking or standing, has not fallen in the last 3 months. 6. The patient is not on any blood thinners or medicine for hypertension. 7. Opioid therapy is greater than 6 weeks; therefore, an opioid signed contract is on the chart. Risk assessment is low. Functional assessment is 40/70. 8. Recreational drug use, she denies. She is a former smoker [place] [address] PAIN MANAGEMENT CONSULTATION Name: ARLENE MCKAY Room #: REG [facility] Garza#: [id number] Admission: 06/17/20 Attend Phys: Elsa Cisneros Discharge: Date of : 56 Report #: [id number] According to the prescription monitoring system, the patient is past due to fill her medications, filling them in a timely fashion. She was recently in quarantine for COVID, so she was unable to make an appointment and has decreased her meds slightly to get to her appointment today. PHYSICAL EXAMINATION: GENERAL: This is a well-developed, well-nourished, well-hydrated 60-year-old female who appears her stated age, rating her pain score at 4/10 today. HEENT: Normocephalic, atraumatic. Extraocular eye muscles are intact. She is wearing a mask. EXTREMITIES: No clubbing, no cyanosis, no edema. MUSCULOSKELETAL: Positive for axial back pain with no radicular symptoms present today. Muscle tone and strength are symmetrical in her lower extremities. Gait appears normal. Tenderness in her cervical spine that radiates into her occipital area. Her upper and lower extremities are symmetrical. ASSESSMENT: 1. Lumbar radiculopathy. 2. Lumbosacral spondylosis with radiculopathy. 3. Lumbar degeneration. 4. Cervical radiculopathy. 5. Facet arthropathy in the lumbar spine. 6. Opioid medication management under written agreement. PLAN: 1. We discussed treatment options with the patient today. The patient found the epidural steroid injection that Dr. Nigel Orr performed on 03/06 is beneficial affording her 75% relief for at least 2 months. She did discuss the radiofrequency ablation that Dr. Orr had performed. I explained to her that had been greater than 5 years ago. She continued to have axial back pain that may be a procedure he may repeat. He would need to start with medial branch blocks I explained to her or possibly facet injections may be beneficial and not requiring the ablation. I encouraged to make an appointment when she feels that she is ready to have that procedure performed for his evaluation. 2. The patient also was complaining of cervical radiculopathy. The patient has also had cervical injections in the past, again that may be a procedure he may repeat. She needs to decide which area is more painful. 3. We did discuss the COVID injections that she will be getting Monday. I encouraged her to complete that vaccines before scheduling her appointments for injections. 4. We will continue her on her hydrocodone, the patient takes 10/325 up to 4 times a day. These will be sent electronically for [address] Orr. 5. She is not needing gabapentin or nabumetone at this time, but we will call [facility] [place] [address] PAIN MANAGEMENT CONSULTATION Name: ARLENE MCKAY Room #: REG [facility] Garza#: [id number] Admission: 06/17/20 Attend Phys: Elsa Cisneros Discharge: Date of : 56 Report #: [id number] those in when needed. The patient is seen today in collaboration with Dr. Nigel Orr. <ELECTRONICALLY SIGNED> By: Elsa Cisneros 06/19/20 0729 [id number] Elsa Cisneros /nt
== END ==
LOC: PAIN 06:53
PROVIDERS: ATTEND Clinical Nurse Specialist Adult Health
DX: M79.604 Pain in right leg (principal); M79.605 Pain in left leg; M47.27 Other spondylosis with radiculopathy, lumbosacral region; R20.2 Paresthesia of skin; M54.2 Cervicalgia; F11.20 Opioid dependence, uncomplicated; Z88.8 Allergy status to other drugs, medicaments and biological substances; Z79.899 Other long term (current) drug therapy

== ENCOUNTER → 2020-10-06 | Outpatient (CLI) | payer OTHER ==
[~2020-10-06] VITALS: Ht 162.6 cm; Wt 65.8 kg
[2020-10-06 12:43] VITALS: BP 121/79
--- NOTE | 2020-10-06 12:50 | NUR ---
Pain Clinic Assessment: 1. History of Osteoarthritis: SPINE History of Rheumatoid Arthritis: DENIES 2. Height: 5 ft. 4 in. 162.6 cm. Weight: 145.0 lb. oz. 65.772 kg. Patient's BMI: 24.9 3. Vital Signs: BP: 121/79 Pulse: 72 Resp: 16 Temp: 02 Sat: 98 ECG Mon: 4. Pain Intensity: 6 5. Fall Risk: Dizziness: N Needs help standing or walking: N Fallen in the last 3 months: N Fall risk comments: 6. Patient on Blood Thinner: None 7. History of Hypertension: N 8. Opioid Therapy greater than 6 weeks: Y Opiate Contract Signed: 03/15/16 9. Risk Assessment Tool Provided: low-1 10. Functional Assessment Tool: 11. Recreational Drug Use: Never Drug Type: Tobacco Use: Former Smoker Tobacco Type: Amount or Packs/day: How Many Years: Alcohol Use: Yes Frequency: Monthly Quant: 3
--- NOTE | 2020-10-07 11:31 | HPC ---
[facility] [place] [address] PAIN MANAGEMENT CONSULTATION Name: NELYARLENE SHRUTHI Room #: REG [facility].Violet.#: [id number] Admission: 10/06/20 Attend Phys: Elsa Cisneros Discharge: Date of : 56 Report #: [id number] THIS REPORT FOR: cc: Josafat Jordan MD, Neal A. MD Hocker, Amanda CNS ~ DOC #: [id number] cc: Nigel Orr DO DATE OF SERVICE: 10/06/2020 CHIEF COMPLAINT: Cervical radiculopathy, low back pain, bilateral lower extremity pain and paresthesias. HISTORY OF PRESENT ILLNESS: This is a very pleasant 60-year-old female who is well known to the pain clinic for her chronic ongoing pain issues. Today, she is returning for a refill of her opioid medications as well as to discuss a possible cervical epidural steroid injection. She continues to experience low back pain that radiates into her legs as well as neck pain that radiates into her right arm and numbness and tingling in both hands. She is reporting that the numbness in her hands is increasing, especially later in the day after she has been busy at work. Today she is also complaining of a cramping, sharp sensation in her lower portion of her back. Her pain score today is a 6/10, at times it may be higher, at times lower, depending on her activity and when she has taken her medications. Overall, she believes her adjunct in opioid medications afford her significant relief as well as sitting and using a heating pad. She denies any constipation issues or daytime somnolence as a result of her medications. The patient would like to discuss a possible epidural steroid injection in her neck, which has been as noted to becoming more problematic. ALLERGIES: OXYCODONE. CURRENT LIST OF MEDICATIONS: Hydrocodone 10/325 p.r.n., nabumetone 500 mg b.i.d. p.r.n., gabapentin 300 mg 1 in the morning, 3 at night, Estrace. PQRS: She has arthritic changes in her spine. Denies any rheumatoid arthritis. Height is 5 feet 4 inches, weight is 145, BMI is 24. VITAL SIGNS: Blood pressure 121/79, pulse is 72, respirations 16, oxygen sat is 98%. Pain score 6 out 10. FALL RISK: Denies dizziness, does not need help walking or standing, has not fallen in the last 3 months. She is not on any blood thinners or medication for hypertension. Opioid therapy is greater than 6 weeks; therefore, an opioid signed contract is on the chart. RISK ASSESSMENT: Low. FUNCTIONAL ASSESSMENT: 40/70. RECREATIONAL DRUG USE: She denies. [place] [address] PAIN MANAGEMENT CONSULTATION Name: NELYARLENE JO Room #: REG [facility] Garza#: [id number] Admission: 10/06/20 Attend Phys: Elsa Cisneros Discharge: Date of : 56 Report #: [id number] and occasionally drinks alcohol. According to the prescription monitoring system, she is filling appropriately in a timely fashion. She is actually past due to fill her opioid medications, making her prescriptions last longer. PHYSICAL EXAMINATION: GENERAL: A 60-year-old female who is well-developed, well-nourished, rating her pain score at 6/10 today. She is a good historian. Speech is fluent. HEENT: Normocephalic, atraumatic. Pupils equal, round and reactive to light. She is wearing a mask. EXTREMITIES: No clubbing, no cyanosis, no edema. MUSCULOSKELETAL: Upper extremity strength appears equal and symmetrical. Tinel's sign is positive on the right when compared to the left. 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 Lower extremity strength is symmetrical with modified ganglion is positive for axial low back pain with radicular symptoms down the right leg greater than the left. IMPRESSION: 1. Lumbar radiculopathy. 2. Lumbosacral spondylosis with radiculopathy. 3. Lumbar degeneration. 4. Cervical radiculopathy at C7-T1 level. 5. Facet arthropathy of the spine. 6. Opioid medication management under written agreement. Using scheduled medications. PLAN: 1. We discussed treatment options with the patient today. The patient finds her hydrocodone beneficial in controlling her pain, at days utilizing only 3 tablets of her medication. Refills will be sent electronically by Dr. Nigel Orr today for hydrocodone 10/325 #120 for today, 4-week and 8-week release. 2. We will continue her gabapentin 300 mg tablets 1 in the morning, 3 at night #120 with 2 additional refills. The patient finds this very beneficial in helping with her radicular symptoms. 3. Lately, her cervical radicular pain has increased, especially at the end of the day, she does find this beneficial in helping reduce this medication as well as periodic epidurals. It appears that her cervical radiculopathy has worsened and was requesting an injection. The patient has had good efficacy with these injections in the past. Her previous injection was in 2017, I believe it is warranted to try and repeat this injection again by Dr. Nigel Orr. We will schedule an appointment and seek authorization for an epidural at the C7-T1 distribution level. The patient continues to be active and does stretching at home as well as being very active with her job. This does increase her pain as the day progresses and does utilize non-medication therapy such as stretching and heat that were beneficial in the past but have [facility] [address] [place] [address] PAIN MANAGEMENT CONSULTATION Name: ARLENE MCKAY Room #: REG [facility] Garza#: [id number] Admission: 10/06/20 Attend Phys: Elsa Cisneros Discharge: Date of : 56 Report #: [id number] lost their efficacy. I also encouraged her wear her braces at night. 4. We will continue her nabumetone. She does take these on an as needed basis. 5. The patient has had her COVID vaccines greater than one month ago. Time spent with the patient in consultation, reviewing recent studies and clinical notes and physician reports, physical examination and correlation of findings and medical documentation to determine possible treatments is 17 minutes. Time spent in preparation for appointment reviewing prescription monitoring system, reviewing previous records and proposed treatment options and reviewing current medications is 5 minutes. Time spent with preparing and sending electronic prescriptions with collaborating physician, Dr. Nigel Orr; documentation of visit and plan of treatment is 5 minutes. Total time spent 27 minutes. YARITZA Hu/SYL <ELECTRONICALLY SIGNED> By: Elsa Cisneros 10/07/20 1131 [id number] Elsa Cisneros /evie
== END ==
LOC: PAIN 12:05
PROVIDERS: ATTEND Clinical Nurse Specialist Adult Health
DX: M47.27 Other spondylosis with radiculopathy, lumbosacral region (principal); M79.605 Pain in left leg; M51.36 Other intervertebral disc degeneration, lumbar region; F11.20 Opioid dependence, uncomplicated; M79.604 Pain in right leg

== ENCOUNTER → 2020-10-13 | Outpatient (CLI) | payer OTHER ==
[~2020-10-13] VITALS: Ht 162.6 cm; Wt 64.9 kg
[2020-10-13 12:37] VITALS: BP 137/83
--- NOTE | 2020-10-13 12:39 | NUR ---
Pain Clinic Assessment: 1. History of Osteoarthritis: SPINE History of Rheumatoid Arthritis: DENIES 2. Height: 5 ft. 4 in. 162.6 cm. Weight: 143.0 lb. oz. 64.864 kg. Patient's BMI: 24.5 3. Vital Signs: BP: 137/83 Pulse: 65 Resp: 18 Temp: 02 Sat: 98 ECG Mon: 4. Pain Intensity: 5 5. Fall Risk: Dizziness: N Needs help standing or walking: N Fallen in the last 3 months: N Fall risk comments: 6. Patient on Blood Thinner: None 7. History of Hypertension: N 8. Opioid Therapy greater than 6 weeks: Y Opiate Contract Signed: 03/15/16 9. Risk Assessment Tool Provided: low-1 10. Functional Assessment Tool: 11. Recreational Drug Use: Never Drug Type: Tobacco Use: Former Smoker Tobacco Type: Amount or Packs/day: How Many Years: Alcohol Use: Yes Frequency: Quant:
--- NOTE | 2020-10-14 07:59 | HPC ---
[facility] [address] [place] [address] PAIN MANAGEMENT CONSULTATION Name: NELYARLENE SHRUTHI Room #: REG [facility]..#: [id number] Admission: 10/13/20 Attend Phys: Nigel Orr DO Discharge: Date of : 56 Report #: [id number] THIS REPORT FOR: cc: Josafat Jordan MD, Neal A. MD Johnson, James E. DO ~ DOC #: [id number] DATE OF SERVICE: 10/13/2020 CHIEF COMPLAINT: Neck pain, bilateral upper extremity pain with paresthesias. HISTORY OF PRESENT ILLNESS: As you know, the patient is a very pleasant 60-year-old female who has returned today in followup visit with recurrence of cervical radiculopathy for which she places pain score 5/10. She returns requesting a cervical epidural injection under fluoroscopic guidance. The patient reports no injury or trauma that may have led to symptom reoccurrence. As you are aware, the patient continues to experience intermittent and spontaneous returns of her radicular symptoms, whether it be in the cervical or lumbar region. Unfortunately, the patient has begun to experience increasing neck pain, upper extremity pain for which she returns today to undergo cervical epidural injection under fluoroscopic guidance. ALLERGIES: CODEINE. CURRENT MEDICATIONS: Hydrocodone 10/325 one tab q.6 hours p.r.n. for pain, gabapentin 300 mg morning and 900 mg at night, nabumetone 500 mg 3 times a day, estradiol 0.5 mg once a day. SOCIAL HISTORY: The patient continues to smoke. Denies IV or illicit drug use. Denies any chronic alcohol use. She is working, not receiving workmen's compensation, unaccompanied today. IMAGING: No new imaging available. PHYSICAL EXAMINATION: VITAL SIGNS: Blood pressure 137/83, pulse 65, respiratory rate 18 and unlabored. The patient 98% on room air. Height 5 feet 4 inches tall, weight 143 pounds, BMI calculated 24.5. GENERAL: Well-developed, well-nourished, well-hydrated 60-year-old female appearing stated age, pain is rated today 5/10. HEENT: Normocephalic, atraumatic. Pupils are round and responsive. The patient is wearing a mask in compliance with COVID-19 regulations. EXTREMITIES: Show no clubbing, no cyanosis. No appreciable edema. MUSCULOSKELETAL: Upper extremity strength equal and symmetrical 5/5, intact to light touch from C5-T1 dermatomes. Muscle bulk and tone equal and symmetrical [address] [address] PAIN MANAGEMENT CONSULTATION Name: ARLENE MCKAY SHRUTHI Room #: REG [facility].#: [id number] Admission: 10/13/20 Attend Phys: Nigel Orr DO Discharge: Date of : 56 Report #: [id number] in upper extremities. Spurling's test is positive on the right, negative left. ASSESSMENT: 1. Cervical radiculopathy. 2. Cervical facet arthropathy with radicular symptoms. 3. Cervical degeneration. 4. Chronic intractable pain. PLAN: 1. The patient returns today in followup visit requesting to undergo a cervical epidural injection under fluoroscopic guidance. The patient has noted excellent benefit with cervical epidurals in the past, requesting to undergo the next in the series. She has denied injury or trauma that may have led to symptom development. The patient has been advised the risks and benefits to this procedure. These risks include but are not necessarily limited to bleeding, bruising, infection, worsening pain, no relief of pain, also risk of temporary or permanent muscle weakness, temporary or permanent nerve damage, possible paralysis post-dural puncture headache and . The patient states understood and wished to proceed. 2. No medication changes made at today's visit. The patient will continue current medical therapy as previously prescribed. 3. We plan to see the patient back in followup visit on an as needed basis for the next in the series of cervical epidural injections or to address recurrent lumbar radicular pain. We are hopeful she sees excellent benefit with today's cervical injection. PROCEDURE NOTE DESCRIPTION OF PROCEDURE: C7-T1 cervical epidural steroid injection under fluoroscopic guidance. After obtaining written consent, the patient was taken back to fluoroscopy suite, placed in a prone position with separate pillows under chest and forehead to decrease cervical lordosis. Skin overlying the cervical area prepped and draped in aseptic fashion. C7-T1 cervical interspace identified by AP fluoroscopy. Skin and subcutaneous tissue overlying target site of injection anesthetized with 3 mL of 1% lidocaine. A 20 gauge 3-1/2 inch Tuohy needle advanced under fluoroscopic guidance towards the epidural space using a midline approach. Epidural space identified using loss of resistance to air technique. After negative aspiration for heme or cerebrospinal fluid, 1 mL of Omnipaque injected. A cervical epidurogram was confirmed using both AP and oblique fluoroscopy. After negative aspiration for heme or cerebrospinal fluid, 5 mL solution containing 2 mL 40 mg per mL 80 mg total triamcinolone along with 3 mL of lidocaine, 1% injected slowly. Needle retracted care home flushed with 1 mL of 1% lidocaine, then removed. Sterile [address] [address] PAIN MANAGEMENT CONSULTATION Name: ARLENE MCKAY Room #: REG [facility]za#: [id number] Admission: 10/13/20 Attend Phys: Nigel Orr DO Discharge: Date of : 56 Report #: [id number] bandage placed over injection site. No new motor deficits present in the upper extremities following procedure. The patient tolerated the procedure well, carefully escorted to recovery room in stable condition. No apparent complications. After meeting discharge criteria, the patient discharged home. Nigel Orr DO JEJ/AMI <ELECTRONICALLY SIGNED> By: Nigel Orr DO 10/14/20 0759 [id number] Nigel Orr DO /nt
== END | disposition home or self-care (01) ==
LOC: PAIN 09:05
PROVIDERS: ATTEND Anesthesiology Pain Medicine
DX: M50.10 Cervical disc disorder with radiculopathy, unspecified cervical region (principal); M47.22 Other spondylosis with radiculopathy, cervical region; G89.29 Other chronic pain; F17.210 Nicotine dependence, cigarettes, uncomplicated; Z98.890 Other specified postprocedural states; Z79.899 Other long term (current) drug therapy; Z88.6 Allergy status to analgesic agent; Z88.8 Allergy status to other drugs, medicaments and biological substances; Z79.891 Long term (current) use of opiate analgesic

== ENCOUNTER → 2020-11-10 | Outpatient (CLI) | payer OTHER ==
[~2020-11-10] VITALS: Ht 162.6 cm; Wt 64.6 kg
[2020-11-10 10:44] VITALS: BP 126/80
--- NOTE | 2020-11-10 11:07 | NUR ---
Pain Clinic Assessment: 1. History of Osteoarthritis: SPINE History of Rheumatoid Arthritis: DENIES 2. Height: 5 ft. 4 in. 162.6 cm. Weight: 142.4 lb. oz. 64.592 kg. Patient's BMI: 24.4 3. Vital Signs: BP: 126/80 Pulse: 79 Resp: 14 Temp: 02 Sat: 97 ECG Mon: 4. Pain Intensity: 7-8 5. Fall Risk: Dizziness: N Needs help standing or walking: N Fallen in the last 3 months: N Fall risk comments: 6. Patient on Blood Thinner: None 7. History of Hypertension: N 8. Opioid Therapy greater than 6 weeks: Y Opiate Contract Signed: 03/15/16 9. Risk Assessment Tool Provided: low-1 10. Functional Assessment Tool: 11. Recreational Drug Use: Never Drug Type: Tobacco Use: Former Smoker Tobacco Type: Amount or Packs/day: How Many Years: Alcohol Use: Yes Frequency: Quant:
--- NOTE | 2020-11-17 09:33 | HPC ---
[address] [address] PAIN MANAGEMENT CONSULTATION Name: ARLENE MCKAY SHRUTHI Room #: REG [facility].#: [id number] Admission: 11/10/20 Attend Phys: Nigel Orr DO Discharge: Date of : 56 Report #: [id number] THIS REPORT FOR: cc: Josafat Jordan MD, Neal A. MD Johnson, James E. DO ~ DOC #: [id number] cc: MD Nigel Elizalde DO DATE OF SERVICE: 11/10/2020 REFERRING PHYSICIAN: Dr. Josafat Jordan CHIEF COMPLAINT: Low back pain, bilateral lower extremity pain with paresthesias. HISTORY OF PRESENT ILLNESS: As you know, the patient is a pleasant 60-year-old female returning in followup visit to undergo lumbar epidural injection under fluoroscopic guidance. She reports that the cervical epidural injection gave up to 90% improvement in symptoms generated from her cervical radiculopathy. Unfortunately, she continues to experience lumbar radiculopathy for which she returns to undergo a lumbar epidural injection under fluoroscopic guidance. She is placing her current pain 7-8/10. She does report good efficacy with previous lumbar epidural injections and hopeful to see similar improvement today. She denies injury or trauma may led to symptom development. ALLERGIES: CODEINE. CURRENT MEDICATIONS: Hydrocodone, gabapentin, nabumetone, and estradiol. SOCIAL HISTORY: The patient continues to smoke. Denies IV or illicit drug use. Denies any chronic alcohol use. She is working, not receiving workmen's compensation, unaccompanied today. IMAGING: No new imaging available. PHYSICAL EXAMINATION: VITAL SIGNS: Blood pressure 126/80, pulse 79, respiratory rate 14 and unlabored. The patient 97% on room air. Height 5 feet 4 inches tall, weight 142.4 pounds, BMI calculated 24.4. GENERAL: Well-developed, well-nourished, well-hydrated 60-year-old female appearing stated age. Pain is rated today 7-8/10. HEENT: Normocephalic, atraumatic. Pupils equal, round and responsive. She is wearing mask in compliance with COVID-19 regulations. EXTREMITIES: Show no clubbing, no cyanosis. No appreciable edema. MUSCULOSKELETAL: Lower extremity strength is symmetrical 5/5. She is intact to [facility] [address] [place] [address] PAIN MANAGEMENT CONSULTATION Name: NELYARLENE Room #: REG [facility] Garza#: [id number] Admission: 11/10/20 Attend Phys: Nigel Orr DO Discharge: Date of : 56 Report #: [id number] light touch from L1 through S2 dermatomes. Seated straight leg raising negative. Supine straight leg raising is positive on the right. Fabere's test is negative. Modified Gaenslen's positive for axial low back pain. Ankle clonus negative. Babinski is negative. Gait appears normal. ASSESSMENT: 1. Symptomatic lumbar radiculopathy. 2. Lumbosacral spondylosis with radiculopathy. 3. Lumbar degeneration. 4. Chronic intractable pain. PLAN: 1. The patient returns today in followup visit reporting pain score 7-8/10, requesting to undergo a lumbar epidural injection under fluoroscopic guidance to address low back pain, bilateral lower extremity pain with paresthesias. The patient has been advised risks and benefits of this procedure, states understood and wished to proceed. 2. The patient has done very well with a cervical epidural injection provided at our last visit. She is now reporting 90% improvement in overall pain from that injection. She is very pleased with that response. She will keep us apprised if the symptoms do reoccur. 3. No medication changes made at today's visit. The patient will continue current medical therapy as prior prescribed. 4. We will plan to see the patient back in followup visit on an as needed basis for injection therapies. Otherwise, we will see her back in a normal time for a refill of medications. DESCRIPTION OF PROCEDURE: L5-S1 interlaminar epidural steroid injection under fluoroscopic guidance. After obtaining written consent, the patient was taken back to fluoroscopy suite, placed in prone position with pillow under abdomen to decrease lumbar lordosis. Skin overlying lumbosacral area prepped and draped in aseptic fashion. The L5-S1 vertebral interspace identified by AP fluoroscopy. Skin and subcutaneous tissue overlying target site injection anesthetized with 3 mL 1% lidocaine. A 20 gauge 3-1/2 inch Tuohy needle advanced under fluoroscopic guidance towards the epidural space using a parasagittal approach. Epidural space identified using loss of resistance to air technique. After negative aspiration for heme or cerebrospinal fluid, 1 mL of Omnipaque injected. Lumbar epidurogram was confirmed using both AP and lateral fluoroscopy. After negative aspiration for heme or cerebrospinal fluid, 5 mL of solution containing 2 mL 40 mg per mL 80 mg total triamcinolone along with 3 mL of lidocaine, 1% injected slowly. Needle retracted residential, flushed with 1 mL of 1% lidocaine and removed. Sterile bandage placed over injection site. No new motor deficits present in lower [address] [address] PAIN MANAGEMENT CONSULTATION Name: ARLENE MCKAY Room #: REG [facility]#: [id number] Admission: 11/10/20 Attend Phys: Nigel Orr DO Discharge: Date of : 56 Report #: [id number] extremity following procedure. The patient tolerated the procedure well, carefully escorted to recovery room in stable condition. No apparent complications. After meeting discharge criteria, the patient discharged home. Nigel Orr DO JEJ/EKT <ELECTRONICALLY SIGNED> By: Nigel Orr DO 11/17/20 0933 [id number] Nigel Orr DO /nt
== END | disposition home or self-care (01) ==
LOC: PAIN 07:02
PROVIDERS: ATTEND Anesthesiology Pain Medicine
DX: M51.16 Intervertebral disc disorders with radiculopathy, lumbar region (principal); M47.27 Other spondylosis with radiculopathy, lumbosacral region; G89.29 Other chronic pain; F17.210 Nicotine dependence, cigarettes, uncomplicated; Z98.890 Other specified postprocedural states; Z79.899 Other long term (current) drug therapy; Z88.8 Allergy status to other drugs, medicaments and biological substances; Z79.891 Long term (current) use of opiate analgesic

== ENCOUNTER → 2021-02-02 | Outpatient (CLI) | payer OTHER ==
[~2021-02-02] VITALS: Ht 162.6 cm; Wt 65.4 kg
[2021-02-02 09:58] VITALS: BP 124/73
--- NOTE | 2021-02-02 10:19 | NUR ---
Pain Clinic Assessment: 1. History of Osteoarthritis: SPINE History of Rheumatoid Arthritis: DENIES 2. Height: 5 ft. 4 in. 162.6 cm. Weight: 144.2 lb. oz. 65.409 kg. Patient's BMI: 24.7 3. Vital Signs: BP: 124/73 Pulse: 70 Resp: 14 Temp: 02 Sat: 100 ECG Mon: 4. Pain Intensity: 6 5. Fall Risk: Dizziness: N Needs help standing or walking: N Fallen in the last 3 months: N Fall risk comments: 6. Patient on Blood Thinner: None 7. History of Hypertension: N 8. Opioid Therapy greater than 6 weeks: Y Opiate Contract Signed: 03/15/16 9. Risk Assessment Tool Provided: low-1 10. Functional Assessment Tool: 11. Recreational Drug Use: Never Drug Type: Tobacco Use: Former Smoker Tobacco Type: Amount or Packs/day: How Many Years: Alcohol Use: Yes Frequency: Special Occasions Quant: 1-2
--- NOTE | 2021-02-03 09:02 | HPC ---
[facility] [address] [place] [address] PAIN MANAGEMENT CONSULTATION Name: ARLENE MCKAY SHRUTHI Room #: REG [facility]..#: [id number] Admission: 02/02/21 Attend Phys: Elsa Cisneros Discharge: Date of : 56 Report #: [id number] THIS REPORT FOR: cc: Josafat Jordan MD, Neal A. MD Hocker,Elsa ZUNIGA ~ Nigel Orr DO DATE OF SERVICE: 02/02/2021 CHIEF COMPLAINT: Low back pain, bilateral lower extremity pain and paresthesias. HISTORY OF PRESENT ILLNESS: As you know, this is a pleasant 60-year-old female who returns to the clinic today for ongoing medication management. She continues to have cervical and lumbar radiculopathy. Today, she is reporting most significantly pain in her low back that is radiating down her legs bilaterally with numbness and tingly sensations in her feet. She does report the epidural steroid injection that Dr. Nigel Orr performed in November was 60-70% beneficial. She reports that she does not have significant pain today, rating it a 4-6, though complaining of significant numbness instead. She also describes her pain at times cramping, achy sensation that is worse with activity, walking or weather changes. She does feel the medications are beneficial as well as heat and sitting. Today, she would like renewal of her gabapentin and hydrocodone. ALLERGIES: OXYCODONE. CURRENT MEDICATIONS: Hydrocodone 10/325 up to 4 times a day, gabapentin 300 mg in the afternoon and 900 at bedtime, nabumetone p.r.n., and Estrace. PQRS: 1. She has osteoarthritic changes in her spine. Denies any rheumatoid arthritis. Height is 5 feet 4 inches, weight is 144. BMI is 24. 2. Vital signs 124/73, pulse is 70, respirations 14, oxygen sat is 100. 3. Pain score is 4-6 depending on activity. 4. Fall assessment. She denies any dizziness. She does not need help walking and has not fallen in the last 3 months. 5. She is not on any blood thinners or medications for hypertension. 6. Opioid therapy is greater than 6 weeks; therefore, an opioid signed contract is on the chart. 7. Risk assessment is low. Functional assessment is 40/70. 8. Recreational drug use, she denies. She is a former smoker and occasionally drinks alcohol. According to the prescription monitoring system, she is filling appropriately. Her morphine milliequivalent is 40 MME or less per day. We will check a random drug screen on her next visit. [place] [address] PAIN MANAGEMENT CONSULTATION Name: ARLENE MCKAY Room #: REG [facility] Garza#: [id number] Admission: 02/02/21 Attend Phys: Elsa Cisneros Discharge: Date of : 56 Report #: [id number] PHYSICAL EXAMINATION: GENERAL: This is a well-developed, well-nourished, well-hydrated 60-year-old female who appears her stated age, rating her pain score today between 4 and 6. She is a good historian. HEENT: Normocephalic, atraumatic. Pupils equal, round and reactive to light. She is wearing a mask in compliance with COVID regulations. EXTREMITIES: No clubbing, no cyanosis, no edema. MUSCULOSKELETAL: Seated straight leg raising is negative. Modified Gaenslen's is positive for axial low back pain and lumbosacral pain that radiates into her left leg with greater than right with numbness. Lower extremity strength is symmetrical at 5/5 with good sensation from L1-S2. She has a normal-appearing gait. ASSESSMENT: 1. Symptomatic lumbar radiculopathy. 2. Lumbosacral spondylosis with radiculopathy. 3. Lumbar degeneration, chronic intractable pain, utilizing scheduled opioid medications. PLAN: 1. We discussed treatment options with the patient today. Based on the patient's symptoms of increasing burning and numbness sensation in her lower extremities, I believe she may benefit from an epidural injection. There has been about 3 months since her previous injection. She reports good efficacy from her injections for several months. We will schedule her back within 2 weeks to have a lumbar epidural steroid injection performed at the L5-S1 level by Dr. Nigel Orr. 2. We did discuss the fact the patient is scheduled for her third COVID vaccine through her employer in early March and then the flu vaccine that is required as well. I did encourage her to have the epidural as soon as she is able with her work commitments to not interfere with those time tables and allow the steroids time to work prior to having her COVID vaccination. 3. We did discuss increasing her gabapentin slightly to see if that helps with her neuropathy symptoms. The patient will increase to 600 mg after work and then 900 mg at bedtime to see if this is beneficial. The patient reports having medications at home and we will not send a refill of this medication currently until we determine her current dose. Time spent with the patient in consultation, reviewing pertinent imaging and reviewing recent studies, clinical notes and physician reports, physical examination and correlation of physical findings and medical documentation needed and possible treatment options 16 minutes. Time spent in preparation for appointment reviewing prescription monitoring reports, reviewing previous records and proposed treatment options, reviewing [facility] [address] [place] [address] PAIN MANAGEMENT CONSULTATION Name: ARLENE MCKAY Room #: REG [facility] Garza#: [id number] Admission: 02/02/21 Attend Phys: Elsa Cisneros Discharge: Date of : 56 Report #: [id number] current medications 5 minutes. Time spent preparing and sending electronic prescriptions with collaborating physician, Dr. Nigel Orr, documentation of visit and plan of treatment 5 minutes. Total time spent 26 minutes. <ELECTRONICALLY SIGNED> By: Elsa Cisneros 02/03/21 0902 1117 0002 Elsa Cisneros /nt
== END ==
LOC: PAIN 02-01 09:12
PROVIDERS: ATTEND Clinical Nurse Specialist Adult Health
DX: M47.27 Other spondylosis with radiculopathy, lumbosacral region (principal); G89.4 Chronic pain syndrome; Z79.891 Long term (current) use of opiate analgesic; Z79.899 Other long term (current) drug therapy

== ENCOUNTER → 2021-02-16 | Outpatient (CLI) | payer OTHER ==
[~2021-02-16] VITALS: Ht 162.6 cm; Wt 65.3 kg
[2021-02-16 13:02] VITALS: BP 111/78
--- NOTE | 2021-02-23 09:20 | HPC ---
[facility] [place] [address] PAIN MANAGEMENT CONSULTATION Name: ARLENE MCKAY SHRUTHI Room #: REG [facility].#: [id number] Admission: 02/16/21 Attend Phys: Nigel Orr DO Discharge: Date of : 56 Report #: [id number] THIS REPORT FOR: cc: Josafat Jordan MD, Neal A. MD Johnson, James E. DO ~ cc: Josafat Jordan MD DATE OF SERVICE: 02/16/2021 REFERRING PHYSICIAN: Josafat Jordan MD CHIEF COMPLAINT: Low back pain, bilateral lower extremity pain. HISTORY OF PRESENT ILLNESS: As you know, the patient is a 60-year-old female with longstanding history of both chronic cervical radiculopathy and lumbar radiculopathy, treated successfully with both cervical and lumbar epidural injections and medication management. She returns today in followup visit with recurrence of lumbar radicular symptoms, rating pain at 5/10. She describes the pain as aching, cramping, tingling and sharp when describing. Symptoms exacerbated with activities, walking, bending and weather, improves with medications, sitting, heat and cold compresses and lumbar epidural injections. She returns today in followup visit, denying injury or trauma, requesting next in a series of epidural injections under fluoroscopic guidance. ALLERGIES: OXYCODONE. CURRENT MEDICATIONS: Hydrocodone, gabapentin, estradiol. SOCIAL HISTORY: The patient is a current smoker. She is smoking half pack tobacco per day, has done so for years. Denies IV or illicit drug use. Admits to occasional alcohol beverage. 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 IMAGING: No new imaging available. PHYSICAL EXAMINATION: VITAL SIGNS: Blood pressure 111/78, pulse 68, respiratory rate 16 and unlabored. The patient 97% on room air. Height 5 feet 4 inches tall, weight 144 pounds, BMI calculated 24.7. GENERAL: Well-developed, well-nourished, well-hydrated 60-year-old female appearing stated age, pain is rated today 5/10. HEENT: Normocephalic, atraumatic. Pupils equal, round and responsive. EXTREMITIES: Show no clubbing, no cyanosis, no edema. MUSCULOSKELETAL: Lower extremity strength equal and symmetrical 5/5, intact to light touch from L1 through S2 dermatomes. Seated straight leg raising is negative. Supine straight leg raising is positive on the left. Fredrick's test is [address] [address] PAIN MANAGEMENT CONSULTATION Name: ARLENE MCKAY SHRUTHI Room #: REG [facility].#: [id number] Admission: 02/16/21 Attend Phys: Nigel Orr DO Discharge: Date of : 56 Report #: [id number] negative. Modified Gaenslen's positive for axial low back pain. Ankle clonus negative. Babinski is negative. ASSESSMENT: 1. Symptomatic lumbar radiculopathy. 2. Lumbosacral spondylosis with radiculopathy. 3. Lumbar degeneration. 4. Chronic intractable pain. PLAN: 1. The patient returns today in followup visit requesting to undergo lumbar epidural injection under fluoroscopic guidance to address her recurrent lumbar radicular pain for which she places pain score at 5/10. She has been advised the risks and benefits of this procedure. These risks include but are not necessarily limited to bleeding, bruising, infection, worsening pain, no relief of pain, also risk of temporary or permanent muscle weakness, temporary or permanent nerve damage, possible paralysis, and . The patient states understood and wished to proceed. 2. No medication changes made at today's visit. The patient will continue current medical therapy as prior prescribed. 3. We plan to see the patient back in followup visit on an as needed basis for the next in a series of epidural injections. DESCRIPTION OF PROCEDURE: L5-S1 interlaminar epidural steroid injection under fluoroscopic guidance. After obtaining written consent, the patient was taken back to fluoroscopy suite, placed in prone position with pillow under abdomen to decrease lumbar lordosis. Skin overlying lumbosacral area then prepped and draped in aseptic fashion. The L5-S1 vertebral interspace identified by AP fluoroscopy. Skin and subcutaneous tissue overlying target site injection anesthetized with 3 mL of 1% lidocaine. A 20 gauge 3-1/2 inch Tuohy needle advanced under fluoroscopic guidance towards the epidural space using a parasagittal approach. Epidural space identified using loss of resistance to air technique. After negative aspiration for heme or cerebrospinal fluid, 1 mL of Omnipaque injected. Lumbar epidurogram confirmed using both AP and lateral fluoroscopy. After negative aspiration for heme or cerebrospinal fluid, 5 mL solution containing 2 mL 40 mg per mL 80 mg total triamcinolone along with 3 mL of lidocaine, 1% injected slowly. Needle retracted residential, flushed with 1 mL of 1% lidocaine, then removed. Sterile bandage placed over injection site. No new motor deficits present in lower extremity following procedure. The patient tolerated the procedure well, carefully escorted to recovery room in [address] [address] PAIN MANAGEMENT CONSULTATION Name: ARLENE MCKAY SHRUTHI Room #: REG [facility]#: [id number] Admission: 02/16/21 Attend Phys: Nigel Orr DO Discharge: Date of : 56 Report #: [id number] stable condition. No apparent complications. After meeting discharge criteria, the patient discharged home. <ELECTRONICALLY SIGNED> By: Nigel Orr DO 02/23/21919 1417 28 Nigel Orr DO /nt
== END | disposition home or self-care (01) ==
LOC: PAIN 11:15
PROVIDERS: ATTEND Anesthesiology Pain Medicine
DX: M51.16 Intervertebral disc disorders with radiculopathy, lumbar region (principal); M47.27 Other spondylosis with radiculopathy, lumbosacral region; G89.29 Other chronic pain; F17.210 Nicotine dependence, cigarettes, uncomplicated; Z98.890 Other specified postprocedural states; Z79.899 Other long term (current) drug therapy; Z88.8 Allergy status to other drugs, medicaments and biological substances

== ENCOUNTER → 2021-05-25 | Outpatient (CLI) | payer OTHER ==
[~2021-05-25] VITALS: Ht 162.6 cm; Wt 66.7 kg
[2021-05-25 11:20] VITALS: BP 142/96
--- NOTE | 2021-05-25 11:23 | NUR ---
Pain Clinic Assessment: 1. History of Osteoarthritis: SPINE History of Rheumatoid Arthritis: DENIES 2. Height: 5 ft. 4 in. 162.6 cm. Weight: 147.0 lb. oz. 66.679 kg. Patient's BMI: 25.2 3. Vital Signs: BP: 142/96 Pulse: 65 Resp: 16 Temp: 02 Sat: 97 ECG Mon: 4. Pain Intensity: 4 5. Fall Risk: Dizziness: N Needs help standing or walking: N Fallen in the last 3 months: N Fall risk comments: 6. Patient on Blood Thinner: None 7. History of Hypertension: N 8. Opioid Therapy greater than 6 weeks: Y Opiate Contract Signed: 03/15/16 9. Risk Assessment Tool Provided: low-1 10. Functional Assessment Tool: 11. Recreational Drug Use: Never Drug Type: Tobacco Use: Current Every Day Smoker Tobacco Type: Cigarettes Amount or Packs/day: 1 pack How Many Years: 17 Alcohol Use: Yes Frequency: Monthly Quant: 2 beers
== END ==
LOC: PAIN 07:04
PROVIDERS: ATTEND Clinical Nurse Specialist Adult Health
DX: M47.26 Other spondylosis with radiculopathy, lumbar region (principal); M47.27 Other spondylosis with radiculopathy, lumbosacral region; G89.29 Other chronic pain; M79.661 Pain in right lower leg; M79.662 Pain in left lower leg; Z88.8 Allergy status to other drugs, medicaments and biological substances; Z79.899 Other long term (current) drug therapy

== ENCOUNTER → 2021-07-20 | Outpatient (CLI) | payer OTHER ==
[~2021-07-20] VITALS: Ht 162.6 cm; Wt 67.0 kg
--- NOTE | ~2021-07-20 | HPC ---
[facility] [place] [address] PAIN MANAGEMENT CONSULTATION Name: ARLENE MCKAY SHRUTHI [facility] [id number] Admission: 07/20/21 Attend Phys: Nigel Orr DO Discharge: Date of : 56 Report #: [id number] THIS REPORT FOR: cc: Josafat Jordan MD, Neal A. MD Johnson, James E. DO ~ cc: Josafat Jordan MD DATE OF SERVICE: 07/20/2021 REFERRING PHYSICIAN: Josafat Jordan MD CHIEF COMPLAINT: Low back pain, bilateral lower extremity pain with paresthesias. HISTORY OF PRESENT ILLNESS: As you know, the patient is a very pleasant 61-year-old female with longstanding history of chronic cervical radiculopathy and chronic lumbar radiculopathy. We have been treating her successfully with cervical epidural injections to address cervical radiculopathy along with medication management. She has also been successfully treated for her lumbar radiculopathy with lumbar epidural injections and medication management. She returns today in followup visit requesting a lumbar epidural injection under fluoroscopic guidance. She has had a slow and progressive return of symptoms for which she places pain today at 3/10 up to 9-10/10. She returns today requesting a lumbar epidural injection under fluoroscopic guidance. The patient denies injury or trauma that may have led to symptom reoccurrence. She has had no changes in medication management that would preclude her from undergoing the epidural injection today. ALLERGIES: OXYCODONE. CURRENT MEDICATIONS: Gabapentin, hydrocodone and estradiol. SOCIAL HISTORY: The patient reports she continues to smoke about half pack tobacco per day, has done so for years. She denies IV or illicit drug use. Admits occasional alcohol beverage. She is working, not receiving workmen's compensation, unaccompanied today. IMAGING: No new imaging available. PHYSICAL EXAMINATION: VITAL SIGNS: Blood pressure 136/74, pulse is 64, respiratory rate 20, unlabored. The patient is 97% on room air. Height 5 feet 4 inches tall, weight 147.8 pounds, BMI calculated 25.4. GENERAL: Well-developed, well-nourished, well-hydrated 61-year-old female appearing stated age, pain is rated today __. HEENT: Normocephalic, atraumatic. Pupils equal, round and responsive to light. [address] [address] PAIN MANAGEMENT CONSULTATION Name: ARLENE MCKAY SHRUTHI Room #: REG CLI [facility]#: [id number] Admission: 07/20/21 Attend Phys: Nigel Orr DO Discharge: Date of : 56 Report #: [id number] Extraocular muscles are intact. Speech fluent. She is wearing a mask in compliance with COVID-19 regulations. LUNGS: Clear, no wheeze, rhonchi or rales. CARDIOVASCULAR: Regular. EXTREMITIES: Show no clubbing, no cyanosis, no edema. MUSCULOSKELETAL: Lower extremity strength remains symmetrical again today 5/5. Straight leg raising is negative in the seated position, positive in the supine position on the left. Fredrick's test is negative. Lumbar provocation testing is met with increasing axial back pain. ASSESSMENT: 1. Symptomatic lumbar radiculopathy. 2. Lumbosacral spondylosis with radiculopathy. 3. Displacement of lumbar intervertebral disk with radiculopathy. 4. Lumbar degeneration. 5. Chronic intractable pain. PLAN: 1. The patient returns today in followup visit requesting to undergo lumbar epidural injection under fluoroscopic guidance. She has done very well with previous epidural injections addressing lumbar spine with a greater than 60% improvement in overall pain with previous injection. She returns today requesting next in the series. She has suffered no new injury, no new trauma that may have led to symptom reoccurrence. There have been no changes in the patient's medication management that would preclude her from undergoing the requested epidural injection today. The patient has been advised risks and benefits of a lumbar epidural injection. These risks include, but are not necessarily limited to; bleeding, bruising, infection, worsening pain, no relief of pain, temporary or permanent muscle weakness, temporary or permanent nerve damage, possible paralysis, post-dural puncture headache and . The patient states understood and wished to proceed. 2. No medication changes made at today's visit. The patient will continue current medical therapy as prior prescribed. 3. We plan to see the patient back in followup visit on an as needed basis for the next in the series of lumbar epidural injections. I am hopeful the patient will once again see good and prolonged benefit with the procedure performed today. I did advise the patient if we do not note long-term benefit further imaging and possible referral to Neurosurgery would be recommended. PROCEDURE NOTE. DESCRIPTION OF PROCEDURE: L5-S1 left parasagittal epidural steroid injection under fluoroscopic guidance. [facility] [address] [place] [address] PAIN MANAGEMENT CONSULTATION Name: ARLENE MCKAY Room #: REG [facility]#: [id number] Admission: 07/20/21 Attend Phys: Nigel Orr DO Discharge: Date of : 56 Report #: [id number] After obtaining written consent, the patient was taken back to fluoroscopy suite, placed in prone position pillow under abdomen to decrease lumbar lordosis. Skin overlying lumbosacral area then prepped and draped in aseptic fashion. The L5-S1 vertebral interspace identified by AP fluoroscopy. Skin and subcutaneous tissue overlying target site injection anesthetized with 3 mL 1% lidocaine. A 20 gauge 3-1/2 inch Tuohy needle advanced under fluoroscopic guidance towards the epidural space using a left parasagittal approach. Epidural space identified using loss of resistance to air technique. After negative aspiration for heme or cerebrospinal fluid, 1 mL of Omnipaque injected. Lumbar epidurogram was confirmed using both AP and lateral fluoroscopy. After negative aspiration for heme or cerebrospinal fluid, 5 mL solution containing 2 mL 40 mg per mL 80 mg total triamcinolone along with 3 mL of lidocaine, 1% injected slowly. Needle retracted chcf flushed with 1 mL of 1% lidocaine and removed. Sterile bandage placed over injection site. No new motor deficits present in the lower extremities following procedure. The patient tolerated the procedure well, carefully escorted to recovery room in stable condition. No apparent complications. After meeting discharge criteria, the patient discharged home. By: [id number] Nigel Orr DO /nt
[2021-07-20 12:39] VITALS: BP 136/74
--- NOTE | 2021-07-20 12:48 | NUR ---
Pain Clinic Assessment: 1. History of Osteoarthritis: SPINE History of Rheumatoid Arthritis: DENIES 2. Height: 5 ft. 4 in. 162.6 cm. Weight: 147.8 lb. oz. 67.042 kg. Patient's BMI: 25.4 3. Vital Signs: BP: 136/74 Pulse: 64 Resp: 20 Temp: 02 Sat: 97 ECG Mon: 4. Pain Intensity: 6 TODAY MORNINGS 9-10 5. Fall Risk: Dizziness: N Needs help standing or walking: N Fallen in the last 3 months: N Fall risk comments: 6. Patient on Blood Thinner: None 7. History of Hypertension: N 8. Opioid Therapy greater than 6 weeks: Y Opiate Contract Signed: 03/15/16 9. Risk Assessment Tool Provided: low-1 10. Functional Assessment Tool: 11. Recreational Drug Use: Never Drug Type: Tobacco Use: Current Every Day Smoker Tobacco Type: Amount or Packs/day: How Many Years: Alcohol Use: Yes Frequency: Monthly Quant: 2-3
== END ==
LOC: PAIN 10:44
PROVIDERS: ATTEND Anesthesiology Pain Medicine
DX: M47.26 Other spondylosis with radiculopathy, lumbar region (principal); M51.16 Intervertebral disc disorders with radiculopathy, lumbar region; G89.28 Other chronic postprocedural pain; F17.210 Nicotine dependence, cigarettes, uncomplicated; Z79.899 Other long term (current) drug therapy